=== PATIENT | male | born 1945 | race Caucasian/White ===

== ENCOUNTER 2016-06-13 11:44 | Observation (INO) | payer MEDICARE, OTHER ==
[2016-06-13] MEDS ORDERED: NS 0.9% 1000 ML* 2,000 ML IV ONE (12:37)
--- NOTE | 2016-06-13 13:50 | RAD ---
HISTORY: Dizziness, trauma, trabeculation COMPARISONS: July 01, 2014 TECHNIQUE: Multiple contiguous axial CT scans were obtained of the head without intravenous contrast. FINDINGS: HEMORRHAGE/INFARCT: There is no hemorrhage or acute infarct. MASSES/SHIFT: There is no mass or shift. EXTRA-AXIAL SPACES: There are no extra-axial fluid collections. SULCI AND VENTRICLES: The sulci and ventricles are normal in size and position for the patient's stated age. CEREBRUM: There are chronic lacunar infarcts of the basal ganglia bilaterally BRAINSTEM: There are no focal parenchymal abnormalities. CEREBELLUM: There are no focal parenchymal abnormalities. VESSELS: The vessels are grossly normal. PARANASAL SINUSES: The paranasal sinuses are clear. ORBITS: The orbits are unremarkable. BONES AND SOFT TISSUE: No bone or soft tissue abnormalities are noted. OTHER: None IMPRESSION: NO ACUTE INTRACRANIAL PATHOLOGY.
--- NOTE | 2016-06-13 13:50 | RAD ---
INDICATION: Dizziness, fever; question pneumonia. Fall. COMPARISON: June 11, 2016 CT abdomen. July 01, 2014 CT chest. TECHNIQUE: Dual energy PA and routine lateral views of the chest were obtained. REPORT: Elevated lung volumes. Negative for pulmonary infiltrate, focal pulmonary lesion, pleural effusion, pneumothorax. Minimal bilateral apical pleural-parenchymal scarring. Unchanged mild cardiomegaly. it applications developer noted. Unremarkable central pulmonary vasculature and mediastinal contours. No thoracic fractures evident. IMPRESSION: Cardiomegaly and stigmata of probable chronic obstructive pulmonary disease. No evidence for pneumonia or other acute intrathoracic disease.
--- NOTE | 2016-06-13 14:00 | RAD ---
Indication: Injury to the LEFT ankle and foot; fall. Comparison: None. Technique: AP, mortise, and lateral views LEFT ankle. AP, lateral, and oblique views LEFT foot. Report: Bone density appears decreased throughout. Negative for fracture or articular malalignment at the ankle or foot. 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 Unremarkable soft tissue contours. IMPRESSION: Negative for fracture at the LEFT ankle or foot.
[2016-06-13 14:19] LABS: Hematocrit 42 % (42-52); Hemoglobin 14.1 g/dl (14.0-18.0); Mean Corpuscular HGB Conc 34 g/dl (31-36); Mean Corpuscular Hemoglobin 31 pg (27-31); Mean Corpuscular Volume 93 fL (80-94); Mean Platelet Volume 7 um3 (7.4-10.4); Red Blood Count 4.51 10^6/ul (4.0-5.4); Red Cell Distribution Width 15 % (10.5-15); White Blood Count 6.6 10^3/ul (3.5-10.8)
[2016-06-13 14:36] LABS: Albumin 4.3 g/dL (3.2-5.2); BUN/Creatinine Ratio 13.4 (8-20); Calcium 9.3 mg/dL (8.6-10.3); EGFR African American 118.8 (>60); EGFR Non-African American 92.4 (>60); Globulin 2.5 g/dL (2-4); Magnesium 2.1 mg/dL (1.9-2.7); Potassium 4.3 mmol/L (3.5-5.0); Total Bilirubin 0.6 mg/dL (0.2-1.0); Total Protein 6.8 g/dL (6.4-8.9)
[2016-06-13 14:37] LABS: Troponin I 0.01 ng/mL (<0.04)
--- NOTE | 2016-06-13 14:51 | PN ---
Progress Note - Progress Note Note: irrigated wound with normal saline with 20CC's. licoaine 1% without epi used for anesthesia Draped in sterile fashion 4 sutures placed - monofilament prolene wrapped with compression wrap over gauze patient tolerated well minimal blood loss, but patient on coumadin neurovascular exam WNL pre-procedure and post-procedure Dr. Esqueda made aware of procedure and results. Patient in good condition and stable.
[2016-06-13 15:03] LABS: TSH (Thyroid Stimulating Horm) 1.52 mcIU/mL (0.34-5.60)
[2016-06-13 16:43] LABS: Urine Bilirubin Negative (Negative); Urine Glucose Negative (Negative); Urine Nitrite Negative (Negative)
--- NOTE | 2016-06-13 16:47 | ED ---
Jorge Staley Billy, scribed for Mickey Esqueda MD on 06/13/16 at 1346 . Dizziness - HPI Summary HPI Summary: Patient is a 70 year-old male coming to [facility] with his for evaluation of dizziness today. He was in the shower when he had an episode of lightheadedness and fell. Denies LOC, although he sustained a small laceration over the second left toe, which his dressed at home. Patient denies any head injury/trauma due to today's fall in the shower. He denies weakness in the extremities or slurred speech. Later this morning, he and his went to his PCP for a scheduled visit and it was found that his INR was 2.2. Last week, his INR was measured at 4.0 and his medications were adjusted. Patient has a history of CVA which his states left him with chronic lower extremity weakness and short- term memory loss. Patient takes a baby ASA daily as well as Coumadin. He was also recently diagnosed with UTI by Dr. Duke. - History Of Current Complaint Chief Complaint: EDDizziness Stated Complaint: DIZZY/FALL-TOE INJURY Time Seen by Provider: 06/13/16 12:37 Hx Obtained From: Patient Onset/Duration: Gradually Timing: Constant Severity Initially: Moderate Severity Currently: Moderate Character: Lightheaded Aggravating Factor(s): Nothing Alleviating Factor(s): Other - toe was dressed at home Associated Signs And Symptoms: Negative: Nausea, Vomiting, Inability to Walk, Slurred Speech - Allergies/Home Medications Allergies/Adverse Reactions: Allergies Allergy/AdvReac Type Severity Reaction Status Date / Time No Known Allergies Allergy Verified 03/27/15 14:44 Home Medications: Home Medications Aspirin Low Dose CHEW TAB* [Aspirin Low Dose TAB*] 81 mg PO DAILY 06/13/16 [ History Confirmed 06/13/16] Atorvastatin* [Lipitor*] 80 mg PO DAILY 06/13/16 [History Confirmed 06/13/16] PARoxetine HCL TAB* [Paxil TAB*] 10 mg PO DAILY 06/13/16 [History Confirmed ] Warfarin TAB(*) [Coumadin TAB(*)] 7.5 mg PO DAILY 06/13/16 [History Confirmed ] metFORMIN* [Glucophage 500 MG TAB *] 1,000 mg PO QAM 06/13/16 [History Confirmed 06/13/16] metFORMIN* [Glucophage 500 MG TAB *] 500 mg PO QPM 06/13/16 [History Confirmed 06/13/16] PMH/Surg Hx/FS Hx/Imm Hx Endocrine/Hematology History: Reports: Hx Diabetes - TYPE II- ORAL MEDICATION FOR Cardiovascular History: Reports: Hx Hypercholesterolemia, Hx Hypertension - WELL CONTROLLED WITH MEDICATION, Hx Myocardial Infarction - "silent MS", Hx Peripheral Vascular Disease - STENTS INSERTED INTO BILATERAL LEGS Denies: Hx Pacemaker/ICD, Hx Valvular Heart Disease Respiratory History: Denies: Hx Asthma, Hx Sleep Apnea GI History: Reports: Hx Gastroesophageal Reflux Disease - ON MEDICATION FOR Denies: Hx Ulcer History: Denies: Hx Dialysis, Hx Renal Disease, Other Problems/Disorders Musculoskeletal History: Denies: Hx Tendonitis Sensory History: Reports: Hx Contacts or Glasses, Hx Hearing Problem Denies: Hx Hearing Aid Opthamlomology History: Reports: Hx Contacts or Glasses Neurological History: Reports: Hx CVA Denies: Other Neuro Impairments/Disorders Psychiatric History: Denies: Hx Panic Disorder - Cancer History Cancer Type, 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 2000- FEMORAL STENT. FEB 2014- HERNIA REPAIR. BLADDER SX. SKIN CA REMOVAL. CARDIAC CATH Hx Anesthesia Reactions: No Infectious Disease History: No Infectious Disease History: Denies: Traveled Outside the [place] in Last 30 Days - Family History Family History: Positive for mother who at the age of 72 of intracerebral hemorrhage. Grandfather had brain aneurysm at the age of 52. Father had history of heart disease and secondary to it at the age of 73. - Social History Alcohol Use: None Alcohol Amount: no alcohol since last CVA Substance Use Type: Reports: None Smoking Status (MU): Former Smoker Amount Used/How Often: 1 PPD X 40 YEARS + Review of Systems Negative: Fever Negative: Vomiting, Nausea Positive: Other - lac toe Neurological: Other - dizziness Positive: Weakness - chronic lower extremity weakness s/p previous CVA. Negative: Syncope All Other Systems Reviewed And Are Negative: Yes Physical Exam - Summary Physical Exam Summary: The patient is well-nourished in no acute distress and in no acute pain. The skin is warm and dry and skin color reflects adequate perfusion. There is a flat, C-shaped laceration at the base of the second left toe, going towards the PIP joint without traversing it. HEENT: The head is normocephalic and atraumatic. The pupils are equal and reactive. EOMI. The conjunctivae are clear and without drainage. Nares are patent and without drainage. Mouth reveals moist mucous membranes and the throat is without erythema and exudate. The external ears are intact. The ear canals are patent and without drainage. The tympanic membranes are intact. Neck is supple with full range of motion and non-tender. There are no carotid bruits. There is no neck vein distension. Respiratory: Chest is non-tender. Lungs are clear to auscultation and breath sounds are symmetrical and equal. Cardiovascular: Heart is irregularly irregular. There is no murmur or rub auscultated. There is no peripheral edema and pulses are symmetrical and equal. Abdomen: The abdomen is soft and non-tender. There are normal bowel sounds heard in all four quadrants and there is no organomegaly palpated. Musculoskeletal: There is no back pain noted. There is tenderness over the dorsum of the foot and the 2nd left toe. He is also tender over the medial and lateral malleolus. There is good capillary refill. There is no peripheral edema or calf tenderness elicited. Neurological: Patient is alert and oriented to person, place and time. The patient has symmetrical motor strength in all four extremities. Cranial nerves are grossly intact. Deep tendon reflexes are symmetrical and equal in all four extremities. See NIHSS for further findings (score = 0). Psychiatric: The patient's speech and affect are appropriate, although he started to cry at inappropriate times. Triage Information Reviewed: Yes Vital Signs On Initial Exam: Initial Vitals Temp Pulse Resp BP Pulse Ox 98.9 F 124 16 154/61 97 06/13/16 11:50 06/13/16 11:50 06/13/16 11:50 06/13/16 11:50 06/13/16 11:50 Vital Signs Reviewed: Yes Diagnostics - Vital Signs Vital Signs Temp Pulse Resp BP Pulse Ox 06/13/16 12:01 39 15 91 06/13/16 12:00 98.4 F 80 16 134/61 96 06/13/16 11:50 98.9 F 124 16 154/61 97 - Laboratory Lab Results: Lab Results 06/13/16 06/13/16 06/13/16 Range/Units 14:00 14:00 14:00 WBC 6.6 (3.5-10.8) 10^3/ul RBC 4.51 (4.0-5.4) 10^6/ul Hgb 14.1 (14.0-18.0) g/dl Hct 42 (42-52) % MCV 93 (80-94) fL MCH 31 (27-31) pg MCHC 34 (31-36) g/dl RDW 15 (10.5-15) % Plt Count 160 (150-450) 10^3/ul MPV 7 L (7.4-10.4) um3 Neut % (Auto) 73.5 (38-83) % Lymph % (Auto) 14.3 L (25-47) % Phillips % (Auto) 9.8 H (1-9) % Eos % (Auto) 1.7 (0-6) % Baso % (Auto) 0.7 (0-2) % Absolute Neuts (auto) 4.9 (1.5-7.7) 10^3/ul Absolute Lymphs (auto) 0.9 L (1.0-4.8) 10^3/ul Absolute Monos (auto) 0.6 (0-0.8) 10^3/ul Absolute Eos (auto) 0.1 (0-0.6) 10^3/ul Absolute Basos (auto) 0 (0-0.2) 10^3/ul Absolute Nucleated RBC 0.01 10^3/ul Nucleated RBC % 0.1 INR (Anticoag Therapy) (0.89-1.11) Sodium 133 (133-145) mmol/L Potassium 4.3 (3.5-5.0) mmol/L Chloride 99 L (101-111) mmol/L Carbon Dioxide 27 (22-32) mmol/L Anion Gap 7 (2-11) mmol/L BUN 11 (6-24) mg/dL Creatinine 0.82 (0.67-1.17) mg/dL Est GFR ( Amer) 118.8 (>60) Est GFR (Non-Af Amer) 92.4 (>60) BUN/Creatinine Ratio 13.4 (8-20) Glucose 130 H (70-100) mg/dL Lactic Acid 1.9 (0.5-2.0) mmol/L Calcium 9.3 (8.6-10.3) mg/dL Magnesium 2.1 (1.9-2.7) mg/dL Total Bilirubin 0.60 (0.2-1.0) mg/dL AST 23 (13-39) U/L ALT 31 (7-52) U/L Alkaline Phosphatase 69 (34-104) U/L Troponin I 0.01 (<0.04) ng/mL Total Protein 6.8 (6.4-8.9) g/dL Albumin 4.3 (3.2-5.2) g/dL Globulin 2.5 (2-4) g/dL Albumin/Globulin Ratio 1.7 (1-3) TSH 1.52 (0.34-5.60) mcIU/mL Urine Color Urine Appearance Urine pH (5-9) Ur Specific [place] (1.010-1.030) Urine Protein (Negative) Urine Ketones (Negative) Urine Blood (Negative) Urine Nitrate (Negative) Urine Bilirubin (Negative) Urine Urobilinogen (Negative) Ur Leukocyte Esterase (Negative) Urine Glucose (Negative) Urine Ascorbic Acid (Negative) 06/13/16 06/13/16 Range/Units 14:00 16:33 WBC (3.5-10.8) 10^3/ul RBC (4.0-5.4) 10^6/ul Hgb (14.0-18.0) g/dl Hct (42-52) % MCV (80-94) fL MCH (27-31) pg MCHC (31-36) g/dl RDW (10.5-15) % Plt Count (150-450) 10^3/ul MPV (7.4-10.4) um3 Neut % (Auto) (38-83) % Lymph % (Auto) (25-47) % Phillips % (Auto) (1-9) % Eos % (Auto) (0-6) % Baso % (Auto) (0-2) % Absolute Neuts (auto) (1.5-7.7) 10^3/ul Absolute Lymphs (auto) (1.0-4.8) 10^3/ul Absolute Monos (auto) (0-0.8) 10^3/ul Absolute Eos (auto) (0-0.6) 10^3/ul Absolute Basos (auto) (0-0.2) 10^3/ul Absolute Nucleated RBC 10^3/ul Nucleated RBC % INR (Anticoag Therapy) 2.18 H (0.89-1.11) Sodium (133-145) mmol/L Potassium (3.5-5.0) mmol/L Chloride (101-111) mmol/L Carbon Dioxide (22-32) mmol/L Anion Gap (2-11) mmol/L BUN (6-24) mg/dL Creatinine (0.67-1.17) mg/dL Est GFR ( Amer) (>60) Est GFR (Non-Af Amer) (>60) BUN/Creatinine Ratio (8-20) Glucose (70-100) mg/dL Lactic Acid (0.5-2.0) mmol/L Calcium (8.6-10.3) mg/dL Magnesium (1.9-2.7) mg/dL Total Bilirubin (0.2-1.0) mg/dL AST (13-39) U/L ALT (7-52) U/L Alkaline Phosphatase (34-104) U/L Troponin I (<0.04) ng/mL Total Protein (6.4-8.9) g/dL Albumin (3.2-5.2) g/dL Globulin (2-4) g/dL Albumin/Globulin Ratio (1-3) TSH (0.34-5.60) mcIU/mL Urine Color Yellow Urine Appearance Clear Urine pH 7.0 (5-9) Ur Specific [place] 1.005 L (1.010-1.030) Urine Protein Negative (Negative) Urine Ketones Negative (Negative) Urine Blood Negative (Negative) Urine Nitrate Negative (Negative) Urine Bilirubin Negative (Negative) Urine Urobilinogen Negative (Negative) Ur Leukocyte Esterase Negative (Negative) Urine Glucose Negative (Negative) Urine Ascorbic Acid * H (Negative) Result Diagrams: 06/13/16 14:00 06/13/16 14:00 Lab Statement: Any lab studies that have been ordered have been reviewed, and results considered in the medical decision making process. - Radiology CXR Xray Interpretation: No Acute Changes Radiology Interpretation Completed By: Radiologist - Cardiomegaly and stigmata of probable chronic obstructive pulmonary disease. No evidence for pneumonia or other acute intrathoracic disease. Left Foot Xray Interpretation: No Acute Changes Radiology Interpretation Completed By: Radiologist Left Ankle Xray Interpretation: No Acute Changes Radiology Interpretation Completed By: Radiologist - CT brain CT Interpretation: No Acute Changes CT Interpretation Completed By: Radiologist - EKG 1206 EKG Interpretation: atrial flutter 94 bpm, controlled ventricular rate, non- specific ST changes National Institutes Of Health - NIH Scale Level of Consciousness: Alert/Keenly Responsive Ask Patient the Month and His/Her Age: Both Correct Ask Pt to Open/Close Eyes and Hack Driver/Release Non-Paretic Hand: Both Correctly Best Gaze (Only Horizontal Eye Movement): Normal Visual Field Testing: No Visual Loss Facial Paresis-Pt to Smile & Close Eyes or Grimace Symmetry: Normal/Symmetrical Motor Function - Right Arm: No Drift-Holds 10 Seconds Motor Function - Left Arm: No Drift-Holds 10 Seconds Motor Function - Right Leg: No Drift-Holds 10 Seconds Motor Function - Left Leg: No Drift-Holds 10 Seconds Limb Ataxia-Must be out of Proportion to Weakness Present: Absent Sensory (Use Pinprick to Test Arms/Legs/Trunk/Face): Normal Best Language (Describe Picture, Name Items): No Aphasia Dysarthria (Read Several Words): Normal Extinction and Inattention: No Abnormality Total Score: 0 Re-Evaluation - Re-Evaluation First Eval Re-Evaluation Time: 14:15 Change: Improved Dizzy Course/Dx - Course Assessment/Plan: 70 year-old male coming to [facility] after two episodes of dizziness today. CT of the brain, CXR, foot x-ray, and ankle x-ray show no acute pathology on imaging. In the ED course, patient was hydrated with IV fluids. The laceration on the toe was sutured and repaired by JUSTIN Palmer ( see her note for further details). Patient care was discussed with Dr. Lawson who accepted the patient for admission. - Diagnoses Differential Diagnosis/HQI/PQRI: Benign Paroxysmal Positional Vertigo, Coronary Artery Disease, CVA, Hypovolemia, Metabolic Abnormality, Vasovagal Reaction, Other - uti, cardiac dysrhythmia Provider Diagnoses: New onset atrial flutter, Weakness generalized, Anticoagulant long-term use - Provider Notifications Discussed Care Of Patient with: Dr. Lawson (hospitalist) @ 1520: accepted admission. Discharge - Discharge Plan Condition: Stable Disposition: ADMITTED TO [facility] Referrals: Brandon Sepulveda MD [Primary Care Provider] - The documentation as recorded by the Jorge gillette Billy accurately reflects the service I personally performed and the decisions made by me, Mickey Esqueda MD.
[2016-06-13] MEDS ORDERED: Acetaminophen TAB* 325 MG PO PRN (16:54)
[2016-06-13] MEDS ORDERED: metFORMIN* 500 MG TAB PO SCH (17:00)
[2016-06-13] MEDS ORDERED: NS 0.9% 1000 ML* 1,000 ML IV SCH (17:00)
[2016-06-13] MEDS ORDERED: Dextrose 50% Syringe 50 ML* 25 GM/50 ML SYRINGE IV PUSH PRN (17:24)
[2016-06-13] MEDS: Insulin LISPRO* 1 UNITS UNIT SUBCUT SCH (17:55)
[2016-06-13] MEDS ORDERED: Warfarin TAB(*) 10 MG PO ONE (18:00)
[2016-06-13] MEDS: Metoprolol Tartrate TAB* 25 MG PO SCH (20:41)
--- NOTE | 2016-06-13 22:28 | HP ---
CC: Dr. Cuba; Dr. Blanco; Dr. Sepulveda HISTORY AND PHYSICAL: DATE OF ADMISSION: 06/13/16 PRIMARY CARE PROVIDER: Dr. Sepulveda. INSTRUMENT REPAIRER STEAM PLANT: Dr. Cuba. NEUROLOGIST: Dr. Blanco. CHIEF COMPLAINT: Laceration of a toe, status post fall, and dizziness. HISTORY OF PRESENT ILLNESS: Mr. 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 Cuba on EKG during his visit in August of 2015 who presented today complaining of dizziness. The patient stated that when he was in the shower, he got dizzy, slipped, was trying to hold on to the shower curtain, subsequently fell out of the bath tub and lacerated his toe hitting it on the faucet. He denies losing consciousness. Please note that the patient is a rather constrained historian and a poor historian due to his vascular dementia. The patient and the patient's felt that it was not that unusual. The patient does get dizzy sometime, but he had another episode of dizziness when walking over to Dr. Sepulveda's office several hours later and at that point, they came over to the ED for evaluation. Here, the laceration of the second left toe was sutured. The patient was noted in atrial flutter. Originally, the ED physician thought that it was new but from review of Dr. Cuba's notes, the patient had atrial fibrillation in the past. Nevertheless, the patient's was concerned about the episodes of dizziness and the patient is going to be placed on overnight observation. Of note, his heart rate went up from 90 to 113 from the lying position to standing up that is diagnostic for orthostatic hypotension. PAST MEDICAL HISTORY: 1. History of antiphospholipid antibody syndrome with embolic strokes in the past due to it. The patient had an episode of vision deficit transient when his INR was a little bit over 2 and at that point, aspirin was added and the patient was recommended to keep his INR levels above 2.5. 2. Recent history of UTI treated by Dr. Duke. During that time, the patient' s INR increased, his Coumadin was held, and subsequently his INR is decreased. The patient was just placed back on his dose of 7.5 mg of Coumadin daily, which is his usual dose, several days ago. 3. Hypertension. 4. Multiinfarct dementia. 5. 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 6. History of gastroesophageal reflux disease. 7. Peripheral vascular disease and evaluated by Dr. Gaxiola. 8. Dyslipidemia. 9. Diabetes type 2. 10. History of tobacco use in the past. 11. H/o atrial fibrillation MEDICATIONS: Include: 1. Metformin 1000 mg in a.m. and 500 mg q.p.m. 2. Amlodipine 10 mg daily. 3. Coumadin 7.5 mg daily. 4. Paroxetine 10 mg daily. 5. Atorvastatin 80 mg daily. 6. Aspirin 81 mg daily. ALLERGIES: No known drug allergies. FAMILY HISTORY: Positive for mother, who at the age of 72 secondary to intracerebral hemorrhage. Grandfather had a brain aneurysm discovered at the age of 52. Father had a history of heart disease and secondary to it at the age of 73. SOCIAL HISTORY: The patient has a history of smoking 10 cigarettes a day. He drinks an occasional beer a day. He denies any drug use. His surrogate is his . 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 REVIEW OF SYSTEMS: Please note that the patient is a poor historian. He ambulates with a cane and occasionally in the past, he would be dizzy when he would close his eyes. He has history of urinary incontinence and wear Depends. He has poor short-term memory as per his . All the remaining 14 systems were reviewed with the patient and the patient's and were otherwise negative. PHYSICAL EXAMINATION GENERAL: The patient is a very pleasant 70-year-old male, who is in no acute distress. Alert, awake, and oriented x3. Poor recall and poor short-term memory. VITAL SIGNS: Blood pressure of 129/68, heart rate of 92 and regular, respiratory rate 15, oxygen saturation 97% on room air, temperature of 98.4. HEENT: Head: Atraumatic, normocephalic. Eyes: Pupils are equal, reactive to light and accommodation. Oropharynx clear. Mucosa moist. NECK: Supple. No JVD. No bruits bilaterally. RESPIRATORY: Clear to auscultation bilaterally. CARDIOVASCULAR: Irregularly irregular rhythm. No murmur. ABDOMEN: Soft, nontender. Bowel sounds present in all 4 quadrants. EXTREMITIES: There is no edema. Pulses are +2 bilaterally. No clubbing or cyanosis. An elevation of the skin on left second toe is sutured. There is a laceration of approximately 2 cm. Sutures applied with no evidence of wound dehiscence. NEUROLOGIC: Speech clear. The patient appears very emotional occasionally throughout his evaluation and that is a known phenomenon in this patient. Cranial nerves II through XII grossly intact. Motor strength is 5/5 bilaterally. Finger- to-nose is not dysmetric. [id number]-pr-[id number] is not dysmetric bilaterally. LABORATORY DATA: Sodium of 133, potassium 4.3, chloride 99, CO2 27, BUN 11, creatinine 0.82. Liver functions were unremarkable. Lactic acid 1.9. White blood cell count of 6.6, hemoglobin of 14.1, hematocrit of 42, MCV of 93, and platelets of 160. The patient's ankle and foot x-ray failed to diagnose any fractures. His chest x- ray: Impression: "Cardiomegaly with stigmata of probable chronic obstructive pulmonary disease. No evidence of pneumonia or other acute intrathoracic disease." Corey CT: Impression: "No acute intracranial pathology." The patient's INR was noted to be 2.18. The patient's EKG showed atrial flutter with a heart rate of 87 beats per minute. Normal axis. Comparable with prior EKGs. The patient has ST depression in the lateral leads. Once again comparing with prior EKG from 2015 , there are no changes. ASSESSMENT AND PLAN: A 70-year-old male status post fall who presents now with occasional dizziness. At this point, the patient's orthostatic vital signs although they did not have change in systolic pressures, they were noted to have change in heart rate conclusive of orthostatic hypotension. At this point , the patient is going to be placed on overnight observation and placed on gentle intravenous hydration overnight. I will ask Physical Therapy to see the patient in the morning. Most likely, they will recommend a walker. In regards to the patient's atrial fibrillation/flutter, it appears not to be a new occurrence, although the patient's heart rate is in the low 100s at this point. I will replace the patient's Norvasc with low dose of beta-dao and observe on telemetry monitored bed. In regards to the patient's diabetes, his medications are going to be continued as previously taken. For DVT prophylaxis, the patient is going to be continued on his Coumadin; but due to his INR being below 2.5, his Coumadin dose is going to be increased to 10 mg daily. We will also check INRs daily. In regards to the patient's history of stroke, at this point there is no evidence of focal weakness. The patient currently does not complain of any dizziness and there is no neurological abnormality to have another neurologic event into consideration at this point. I do believe that the dizziness is probably a combination due to atrial flutter and mild dehydration. His aspirin and his Coumadin is going to be continued for his history of antiphospholipid antibody syndrome. The patient's code status is full. For DVT prophylaxis as above, the patient is therapeutic with Coumadin as mentioned above. TIME SPENT: Please note that approximately 65 minutes were spent on the admission of this patient; more than half of that time was spent [id number] with the patient during the interview and physical exam. [id number]/[facility] #: [id number] MELISSA
[2016-06-14 06:05] LABS: Hematocrit 38 % (42-52); Hemoglobin 13.1 g/dl (14.0-18.0); Mean Corpuscular HGB Conc 34 g/dl (31-36); Mean Corpuscular Hemoglobin 32 pg (27-31); Mean Corpuscular Volume 94 fL (80-94); Mean Platelet Volume 7 um3 (7.4-10.4); Red Blood Count 4.09 10^6/ul (4.0-5.4); Red Cell Distribution Width 15 % (10.5-15); White Blood Count 6.7 10^3/ul (3.5-10.8)
[2016-06-14 06:19] LABS: BUN/Creatinine Ratio 10.1 (8-20); Calcium 8.9 mg/dL (8.6-10.3); EGFR African American 108.1 (>60); Potassium 4.5 mmol/L (3.5-5.0)
[2016-06-14] MEDS: Insulin LISPRO* 1 UNITS UNIT SUBCUT SCH (08:55)
[2016-06-14] MEDS: Metoprolol Tartrate TAB* 25 MG PO SCH (08:57)
[2016-06-14] MEDS ORDERED: PARoxetine HCL TAB* 10 MG PO SCH (09:00)
[2016-06-14] MEDS ORDERED: Atorvastatin* 80 MG TAB PO SCH (09:00)
[2016-06-14] MEDS ORDERED: metFORMIN* 1,000 MG TAB PO SCH (09:00)
[2016-06-14] MEDS ORDERED: Aspirin Low Dose CHEW TAB* 81 MG PO SCH (09:00)
[2016-06-14 11:44] VITALS: BP 108/60
[2016-06-14] MEDS ORDERED: Warfarin TAB(*) 10 MG PO SCH (17:00)
--- NOTE | 2016-06-15 03:23 | DS ---
CC: Dr. Sepulveda; Dr. Blanco; Dr. Gaxiola; Dr. Cuba DISCHARGE SUMMARY: DATE OF ADMISSION: 06/13/16 DATE OF DISCHARGE: 06/14/16 PRIMARY CARE PROVIDER: Dr. Sepulveda. DISCHARGE DIAGNOSES: 1. Dizziness. 2. Status post fall. 3. Laceration of the left second toe as a consequence of a fall. 4. Atrial flutter with heart rate in the 90s at admission. 5. Orthostasis. SECONDARY DIAGNOSES: 1. History of antiphospholipid antibody syndrome. 2. History of episodes of atrial flutter. 3. Hypertension. 4. Multi-infarct dementia. 5. History of bladder neoplasm. 6. Gastroesophageal reflux disease. 7. Peripheral vascular disease. 8. Dyslipidemia. 9. Diabetes type 2. MEDICATIONS: Medications changes include: 1. Norvasc was discontinued. 2. Coumadin is increased to 10 mg daily instead of 7.5 mg. 3. Metoprolol tartrate 12.5 mg b.i.d. is started. The remaining medications are unchanged and include: 1. Metformin 1000 mg in a.m. and 500 mg q.p.m. 2. Atorvastatin 80 mg daily. 3. Aspirin 81 mg daily. 4. Paroxetine 10 mg daily. Next INR to be checked on 06/16/16 or 06/17/16 with the Coumadin doses to be adjusted accordingly by Dr. Sepulveda. At discharge, the patient is recommended to follow up with Dr. Sepulveda in approximately 4 to 7 days. The patient is also asked to call Dr. Cuba to schedule an appointment in 1 to 2 weeks. The patient is also followed by Dr. Gaxiola for his peripheral vascular disease. LABORATORY DATA: At discharge, white blood cell count of 6.7, hemoglobin of 13.1, hematocrit of 38, and platelets of 152. Sodium was 134, potassium of 4.5, chloride 102, carbon dioxide 27, BUN 9, creatinine 0.89. Wound care to the left second toe stitches that were applied in the emergency department. The patie nt is to cover it with dry gauze on a daily basis after application of bacitracin. The bacitracin c an be stopped in approximately 5 days. It is okay once the wound is dry in a couple of days to use a Band-Aid only instead of gauze. Okay to shower on a daily basis. Keep the wound dry for a couple of days. Stitches are to be removed in approximately 7 to 10 days by either primary care provider or person a [facility]. The patient's INR on the day of discharge was 2.18. HOSPITALIZATION COURSE: Vincent Carlson is a 70-year-old male with a history of the above-mentioned c hronic conditions who presented to the hospital after couple of episodes of dizziness. When the fir st episode of dizziness happened, the patient was in the bathtub. He fell, suffered a laceration to his toe. Later on when he was on his way to Dr. Sepulveda's office, he was stepping over a curb and h e felt an episode of dizziness also. He was not dizzy anymore when he presented to the emergency de partment, but he was noted to be in atrial flutter. The patient has history of paroxysmal atrial fl utter that was documented in Dr. Cuba's notes in the past. The patient's heart rate was in the 90s . It was noted that he had increased heart rate when standing up, positive for orthostasis. At thi s point, the patient was placed on overnight observation, placed on gentle intravenous hydration sin ce he appeared dehydrated. His Norvasc was stopped and metoprolol was started at a low dose to try to control the patient's atrial flutter more. At the time of discharge, the patient's heart rate cota d been in the 60s. He has no complaints of dizziness anymore and he ambulated to the bathroom witho ut any problems. At discharge, the patient is recommended to start using a roller walker for safety . Further recommendations as previously cited. PHYSICAL EXAMINATION AT THE TIME OF DISCHARGE: Blood pressure of 112/61, heart rate of 62 and regul ar, respiratory rate 16, oxygen saturation 97% on room air, temperature of 97.3. General: The bharati ent is a very pleasant 70-year-old male, who is in no acute distress. The patient is alert and orie nted x2. The patient is rather a poor historian and that is his baseline. HEENT: Head: Atraumati c, normocephalic. Eyes: Pupils equal and reactive to light and accommodation. Oropharynx clear. M ucosa moist. Neck: Supple, no JVD and no bruits bilaterally. Cardiovascular: Irregularly irregula r rhythm. No murmur. Respiratory: Clear to auscultation bilaterally. Abdomen: Soft, nontender. Bowel sounds present in all 4 quadrants. Extremities: There is no edema. Pulses 2+ bilaterally. No clubbing or cyanosis. On evaluation of the skin, the left second toe on the dorsal aspect, the patient has a laceration that is approximately 2 cm in length, sutured with well approximated edges. The area is covered with eschar. There was no evidence of cellulitis and no wound dehiscence. Please note that this is a short summary of the patient's hospital stay. Please refer to further [place]ical records for details. [id number]/[facility] #: [id number]
== END 2016-06-14 12:00 | disposition home or self-care (01) ==
LOC: ED 11:44 → MEDTELE 17:10
PROVIDERS: ADMIT Internal Medicine; ATTEND Internal Medicine
DX: R42 Dizziness and giddiness (principal); S91.115A Laceration without foreign body of left lesser toe(s) without damage to nail, initial encounter; W18.2XXA Fall in (into) shower or empty bathtub, initial encounter; Y93.E1 Activity, personal bathing and showering; Y92.002 Bathroom of unspecified non-institutional (private) residence as the place of occurrence of the external cause; I48.92 Unspecified atrial flutter; Z79.01 Long term (current) use of anticoagulants; I95.1 Orthostatic hypotension; D68.61 Antiphospholipid syndrome; I10 Essential (primary) hypertension; F03.90 Unspecified dementia, unspecified severity, without behavioral disturbance, psychotic disturbance, mood disturbance, and anxiety; K21.9 Gastro-esophageal reflux disease without esophagitis; I73.9 Peripheral vascular disease, unspecified; E78.5 Hyperlipidemia, unspecified; E11.9 Type 2 diabetes mellitus without complications; I49.3 Ventricular premature depolarization; Z79.84 Long term (current) use of oral hypoglycemic drugs; Z79.82 Long term (current) use of aspirin; Z87.891 Personal history of nicotine dependence
CPT/HCPCS: 12001; 36415; 70450; 71020; 80048; 80053; 81003; 83605; 83735; 84443; 84484; 85025; 85610; 93005; 96360; 99284; A9270-GY; G0378

== ENCOUNTER 2017-07-15 17:37 | Emergency (ER) | payer MEDICARE, OTHER ==
[2017-07-15] MEDS ORDERED: NS 0.9% 1000 ML* 1,000 ML IV ONE ×2 (17:59→20:54)
[2017-07-15 18:40] LABS: ABS Basophils 0.1 10^3/ul (0-0.2); ABS Eosinophils 0.4 10^3/ul (0-0.6); ABS Lymphocytes 0.9 10^3/ul (1.0-4.8); ABS Monocytes 0.7 10^3/ul (0-0.8); ABS Neutrophils 5.6 10^3/ul (1.5-7.7); ABS Nucleated RBC 0 10^3/ul; Eosinophil % 5.3 % (0-6); Hematocrit 38 % (42-52); Hemoglobin 12.9 g/dl (14.0-18.0); Lymphocyte % 11.7 % (25-47); Mean Corpuscular HGB Conc 34 g/dl (31-36); Mean Corpuscular Hemoglobin 32 pg (27-31); Mean Corpuscular Volume 92 fL (80-94); Mean Platelet Volume 6.7 um3 (7.4-10.4); Nucleated Red Blood Cells % 0; Platelet Count 243 10^3/ul (150-450); Red Blood Count 4.08 10^6/ul (4.0-5.4); Red Cell Distribution Width 15 % (10.5-15); White Blood Count 7.7 10^3/ul (3.5-10.8)
[2017-07-15 18:54] LABS: INR 2.53 (0.77-1.02)
[2017-07-15 19:00] LABS: EGFR Non-African American 88.4 (>60)
[2017-07-15] MEDS ORDERED: Iodixanol* (CONTRAST) 320 MG/ML 100 ML SDV IV ONE (19:11)
--- NOTE | 2017-07-15 19:28 | RAD ---
HISTORY: Chest and upper abdominal pain COMPARISONS: PET CT dated June 16, 2012 TECHNIQUE: Multiple transverse and longitudinal ultrasound images were obtained of the right upper quadrant of the abdomen using grayscale and color Doppler imaging. FINDINGS: The study is technically limited. LIVER: The liver is normal in shape, size, contour, and echogenicity. There are no focal parenchymal masses. There is normal hepatopedal flow of the portal vein on Doppler imaging. BILIARY TREE: There is no intrahepatic or extrahepatic biliary dilatation. The common duct measures 0.6 cm. GALLBLADDER: The gallbladder is well-visualized. There is no cholelithiasis, gallbladder wall thickening, pericholecystic fluid, or sonographic Gonzalez sign. PANCREAS: The pancreas is obscured by overlying bowel gas. RIGHT KIDNEY: There is a small focus within the midpole left kidney that corresponds to vascular calcification noted on the previous PET/CT. There is no hydronephrosis or nephrolithiasis. The right kidney measures 10.9 x 5.8 x 4.8 cm. AORTA AND IVC: The aorta and IVC are unremarkable. FLUID: There are no pleural effusions. There is no free fluid within the hepatorenal recess. OTHER FINDINGS: None. IMPRESSION: NO ACUTE SONOGRAPHIC PATHOLOGY OF THE VISUALIZED PORTION OF THE ABDOMEN.
--- NOTE | 2017-07-15 20:26 | RAD ---
HISTORY: Chest and upper abdominal pain, chest surgery COMPARISONS: PET CT dated June 16, 2014 TECHNIQUE: Multiple contiguous axial CT scans were obtained of the chest, abdomen, and pelvis after the administration of intravenous contrast. Coronal and sagittal multiplanar reformations are submitted for review.. Oral contrast was not administered. FINDINGS: CHEST NECK AND THYROID: The lower neck and thyroid are unremarkable. CHEST WALL: There is no lower cervical, axillary, or supraclavicular lymphadenopathy by size criteria. HEART AND PERICARDIUM: There is biatrial and biventricular enlargement. Coronary and valvular cardiac calcifications are noted. AORTA AND PULMONARY VASCULATURE: There is no pulmonary arterial filling defect to suggest pulmonary embolism. There is atherosclerosis of the thoracic aorta. MEDIASTINUM: There is been interval progression of a right paratracheal lymph node measuring 2.6 cm in short axis. There has been interval progression of prevascular lymph nodes measuring up to 1.1 cm in short axis. SALVADOR: There has been interval progression of right hilar lymphadenopathy, measuring up to 1.2 cm in short axis. AIRWAY AND ESOPHAGUS: The airway is unremarkable, without endobronchial filling defect. The esophagus is grossly normal. LUNG PARENCHYMA: The patient is status post right lower lobectomy. There is calcified granuloma of the right upper lobe. PLEURA: There is a moderate right-sided pleural effusion. BONES AND SOFT TISSUES: No bone or soft tissue abnormalities are noted. ABDOMEN/PELVIS: LIVER: The liver is normal in shape, size, contour, and attenuation. BILE DUCTS: There is no intrahepatic or extrahepatic biliary dilatation. GALLBLADDER: The gallbladder is normal, without pericholecystic inflammatory change. PANCREAS: The pancreas is normal, without mass or ductal dilatation. SPLEEN: Normal in size and appearance. UPPER GI TRACT: Evaluation of the gastrointestinal tract is limited by incomplete gastric distention. The upper GI tract is unremarkable. SMALL BOWEL & MESENTERY: The small bowel is normal in contour, course, and caliber. There is no obstruction or dilatation. COLON: There are multiple diverticula of the distal colon. There is no pericolonic inflammatory change. There is a tubular, vermiform, hollow viscus that is blind ending, and originates from the cecum, consistent with a normal appendix. There is no periappendiceal inflammatory change. This is best seen on coronal images 53 through 60. ADRENALS: Normal bilaterally. KIDNEYS: The kidneys are normal in shape, size, contour, and axis. There is no hydronephrosis or nephrolithiasis. BLADDER: The bladder is smooth in contour. PELVIC ORGANS: The prostate is mildly enlarged. The seminal vesicles are symmetric. AORTA: There is calcific atherosclerotic disease of the abdominal aorta and its branches, without aneurysmal dilatation IVC: Unremarkable LYMPH NODES: There is no lymphadenopathy by size criteria. ABDOMINAL WALL: There is no evidence for abdominal wall hernia. BONES AND SOFT TISSUES: There are mild diffuse degenerative changes. OTHER: None IMPRESSION: 1. NO PULMONARY ARTERIAL FILLING DEFECTS TO SUGGEST PULMONARY EMBOLISM. 2. RIGHT PLEURAL EFFUSION. 3. INTERVAL PROGRESSION OF HILAR AND MEDIASTINAL LYMPHADENOPATHY. 4. CARDIOMEGALY. 5. ATHEROSCLEROSIS. 6. DIVERTICULOSIS
--- NOTE | 2017-07-15 21:40 | ED ---
Teetee Staley Julia, scribed for López Gray MD on 07/15/17 at 1818 . Complex/Multi-Sys Presentation - HPI Summary HPI Summary: This patient is a 71 year old M BIBA to [facility] accompanied by his with a chief complaint of chest and abdominal discomfort beginning a few hours ago that is currently resolved. Pt describes symptoms as just not right. Symptoms aggravated by deep breaths. He denies CP or abdominal pain. 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 Patient denies vision changes, speech changes, headache, neck pain. denies neurological symptoms or weakness. Pt alternates 5mg and 7.5mg of Warfarin daily. PMHx of a-fib, TIAs, and lung CA. Pt had mid right lobectomy about three weeks ago. - History Of Current Complaint Hx Obtained From: Patient, Family/Correctional Cook Onset/Duration: Lasting Hours, Resolved Location: Pain At: - discomfort at chest and abdomen Character: Unable To Describe Aggravating Factor(s): deep breaths Associated Signs And Symptoms: Negative: Weakness, Chest Pain, Abdominal Pain - Allergies/Home Medications Allergies/Adverse Reactions: Allergies Allergy/AdvReac Type Severity Reaction Status Date / Time No Known Allergies Allergy Verified 08/14/16 13:30 Home Medications: Home Medications Aspirin EC TAB* [Ecotrin EC Low Dose 81 MG*] 81 mg PO DAILY 07/15/17 [History Confirmed 07/15/17] Atorvastatin* [Lipitor*] 80 mg PO DAILY 07/15/17 [History Confirmed 07/15/17] Metoprolol Tartrate TAB* [Lopressor TAB*] 25 mg PO BID 07/15/17 [History Confirmed 07/15/17] PARoxetine HCL TAB* [Paxil TAB*] 10 mg PO DAILY 07/15/17 [History Confirmed 05/03] Tamsulosin CAP* [Flomax CAP*] 0.4 mg PO DAILY 07/15/17 [History Confirmed ] Warfarin TAB(*) [Coumadin TAB(*)] 5 mg PO EVERY OTHER DAY 07/15/17 [History Confirmed 07/15/17] Warfarin TAB(*) [Coumadin TAB(*)] 7.5 mg PO EVERY OTHER DAY 07/15/17 [History Confirmed 07/15/17] amLODIPine TAB* [Norvasc 5 mg TAB*] 5 mg PO DAILY 07/15/17 [History Confirmed ] metFORMIN* [Glucophage 1000 MG TAB *] 1,500 mg PO DAILY 07/15/17 [History Confirmed 07/15/17] PMH/Surg Hx/FS Hx/Imm Hx Endocrine/Hematology History: Reports: Hx Diabetes - TYPE II- ORAL MEDICATION FOR Cardiovascular History: Reports: Hx Hypercholesterolemia, Hx Hypertension - WELL CONTROLLED WITH MEDICATION, Hx Myocardial Infarction - "silent ME", Hx Peripheral Vascular Disease - STENTS INSERTED INTO BILATERAL LEGS, Other Cardiovascular Problems/Disorders - HIGH CHOLESTEROL WELL CONTROLED WITH MEDICATION Denies: Hx Pacemaker/ICD, Hx Valvular Heart Disease Respiratory History: Denies: Hx Asthma, Hx Sleep Apnea GI History: Reports: Hx Gastroesophageal Reflux Disease - ON MEDICATION FOR Denies: Hx Ulcer History: Denies: Hx Dialysis, Hx Renal Disease, Other Problems/Disorders Musculoskeletal History: Denies: Hx Tendonitis Sensory History: Reports: Hx Contacts or Glasses, Hx Hearing Problem Denies: Hx Hearing Aid Opthamlomology History: Reports: Hx Contacts or Glasses Neurological History: Reports: Hx CVA, Hx Transient Ischemic Attacks (TIA) Denies: Other Neuro Impairments/Disorders Psychiatric History: Denies: Hx Panic Disorder - Cancer History Cancer Type, Location and Year: SKIN CA -EAR. Lung CA - Surgical History Surgery Procedure, Year, and Place: APR 25, 2014- REVEAL LINQ MONITOR- LQ11, * 1.5 T ONLY* PER PT'S EVERYTHING AUTOMATICALLY DOWNLADS EVERY NIGHT AT MIDNIGHT. 2000- FEMORAL STENT. FEB 2014- HERNIA REPAIR. BLADDER SX. SKIN CA REMOVAL. CARDIAC CATH. Right mid lobectomy June 2017 Hx Anesthesia Reactions: No Infectious Disease History: No Infectious Disease History: Denies: Traveled Outside the [place] in Last 30 Days - Family History Known Family History: Positive: Other - gallbladder issues Family History: Positive for mother who at the age of 72 of intracerebral hemorrhage. Grandfather had brain aneurysm at the age of 52. Father had history of heart disease and secondary to it at the age of 73. - Social History Lives: With Family Alcohol Use: Daily Alcohol Amount: 1 - 2 beers a day Substance Use Type: Reports: None Smoking Status (MU): Former Smoker Amount Used/How Often: 1 PPD X 40 YEARS + Review of Systems Positive: Fatigue Negative: Blurred Vision Positive: Nasal Discharge Negative: Chest Pain Negative: Abdominal Pain Negative: Myalgia Negative: Headache, Weakness, Slurred Speech All Other Systems Reviewed And Are Negative: Yes Physical Exam - Summary Physical Exam Summary: General: well-appearing, no pain distress Skin: warm, color reflects adequate perfusion, dry Head: normal Eyes: EOMI, ANITHA ENT: normal Neck: supple, nontender Respiratory: CTA, breath sounds present Cardiovascular: RRR Abdomen: soft, nontender, healing surgical wound to the R lateral chest without erythmea Bowel: present Musculoskeletal: normal, strength/ROM intact Neurological: normal, sensory/motor intact, A&O x3 Psychological: affect/mood appropriate Triage Information Reviewed: Yes Vital Signs On Initial Exam: Initial Vitals Pulse Resp Pulse Ox 89 16 95 07/15/17 17:42 07/15/17 17:42 07/15/17 17:42 Vital Signs Reviewed: Yes Diagnostics - Vital Signs Vital Signs Temp Pulse Resp BP Pulse Ox 07/15/17 17:53 98.4 F 87 16 124/84 95 07/15/17 17:43 91 22 126/84 94 07/15/17 17:42 89 16 95 - Laboratory Lab Results: Lab Results 07/15/17 07/15/17 07/15/17 Range/Units 18:21 18:21 18:21 WBC 7.7 (3.5-10.8) 10^3/ul RBC 4.08 (4.0-5.4) 10^6/ul Hgb 12.9 L (14.0-18.0) g/dl Hct 38 L (42-52) % MCV 92 (80-94) fL MCH 32 H (27-31) pg MCHC 34 (31-36) g/dl RDW 15 (10.5-15) % Plt Count 243 (150-450) 10^3/ul MPV 6.7 L (7.4-10.4) um3 Neut % (Auto) 72.9 (38-83) % Lymph % (Auto) 11.7 L (25-47) % [place] % (Auto) 9.0 H (0-7) % Eos % (Auto) 5.3 (0-6) % Baso % (Auto) 1.1 (0-2) % Absolute Neuts (auto) 5.6 (1.5-7.7) 10^3/ul Absolute Lymphs (auto) 0.9 L (1.0-4.8) 10^3/ul Absolute Monos (auto) 0.7 (0-0.8) 10^3/ul Absolute Eos (auto) 0.4 (0-0.6) 10^3/ul Absolute Basos (auto) 0.1 (0-0.2) 10^3/ul Absolute Nucleated RBC 0 10^3/ul Nucleated RBC % 0 INR (Anticoag Therapy) 2.53 H (0.77-1.02) APTT 56.6 H (26.0-36.3) seconds D-Dimer, Quantitative 572 H (Less Than 230) ng/mL Sodium 135 L (139-145) mmol/L Potassium 4.6 (3.5-5.0) mmol/L Chloride 100 L (101-111) mmol/L Carbon Dioxide 24 (22-32) mmol/L Anion Gap 11 (2-11) mmol/L BUN 13 (6-24) mg/dL Creatinine 0.85 (0.67-1.17) mg/dL Est GFR ( Amer) 113.6 (>60) Est GFR (Non-Af Amer) 88.4 (>60) BUN/Creatinine Ratio 15.3 (8-20) Glucose 130 H (70-100) mg/dL Lactic Acid (0.5-2.0) mmol/L Calcium 9.1 (8.6-10.3) mg/dL Magnesium 2.1 (1.9-2.7) mg/dL Total Bilirubin 0.60 (0.2-1.0) mg/dL AST 22 (13-39) U/L ALT 30 (7-52) U/L Alkaline Phosphatase 77 (34-104) U/L Total Creatine Kinase 62 (10-223) U/L CK-MB (CK-2) 2.7 (0.6-6.3) ng/mL Troponin I 0.00 (<0.04) ng/mL C-Reactive Protein 1.12 (< 5.00) mg/L B-Natriuretic Peptide ( - 100) pg/mL Total Protein 6.6 (6.4-8.9) g/dL Albumin 3.9 (3.2-5.2) g/dL Globulin 2.7 (2-4) g/dL Albumin/Globulin Ratio 1.4 (1-3) Lipase 13 (11.0-82.0) U/L TSH 1.70 (0.34-5.60) mcIU/mL 07/15/17 07/15/17 07/15/17 Range/Units 18:21 18:21 20:37 WBC (3.5-10.8) 10^3/ul RBC (4.0-5.4) 10^6/ul Hgb (14.0-18.0) g/dl Hct (42-52) % MCV (80-94) fL MCH (27-31) pg MCHC (31-36) g/dl RDW (10.5-15) % Plt Count (150-450) 10^3/ul MPV (7.4-10.4) um3 Neut % (Auto) (38-83) % Lymph % (Auto) (25-47) % [place] % (Auto) (0-7) % Eos % (Auto) (0-6) % Baso % (Auto) (0-2) % Absolute Neuts (auto) (1.5-7.7) 10^3/ul Absolute Lymphs (auto) (1.0-4.8) 10^3/ul Absolute Monos (auto) (0-0.8) 10^3/ul Absolute Eos (auto) (0-0.6) 10^3/ul Absolute Basos (auto) (0-0.2) 10^3/ul Absolute Nucleated RBC 10^3/ul Nucleated RBC % INR (Anticoag Therapy) (0.77-1.02) APTT (26.0-36.3) seconds D-Dimer, Quantitative (Less Than 230) ng/mL Sodium (139-145) mmol/L Potassium (3.5-5.0) mmol/L Chloride (101-111) mmol/L Carbon Dioxide (22-32) mmol/L Anion Gap (2-11) mmol/L BUN (6-24) mg/dL Creatinine (0.67-1.17) mg/dL Est GFR ( Amer) (>60) Est GFR (Non-Af Amer) (>60) BUN/Creatinine Ratio (8-20) Glucose (70-100) mg/dL Lactic Acid 1.5 (0.5-2.0) mmol/L Calcium (8.6-10.3) mg/dL Magnesium (1.9-2.7) mg/dL Total Bilirubin (0.2-1.0) mg/dL AST (13-39) U/L ALT (7-52) U/L Alkaline Phosphatase (34-104) U/L Total Creatine Kinase (10-223) U/L CK-MB (CK-2) (0.6-6.3) ng/mL Troponin I 0.00 (<0.04) ng/mL C-Reactive Protein (< 5.00) mg/L B-Natriuretic Peptide 242 H ( - 100) pg/mL Total Protein (6.4-8.9) g/dL Albumin (3.2-5.2) g/dL Globulin (2-4) g/dL Albumin/Globulin Ratio (1-3) Lipase (11.0-82.0) U/L TSH (0.34-5.60) mcIU/mL Result Diagrams: 07/15/17 18:21 07/15/17 18:21 Lab Statement: Any lab studies that have been ordered have been reviewed, and results considered in the medical decision making process. - CT Chest/A/P CT Interpretation Completed By: Radiologist - 1. NO PULMONARY ARTERIAL FILLING DEFECTS TO SUGGEST PULMONARY EMBOLISM. 2. RIGHT PLEURAL EFFUSION. 3. INTERVAL PROGRESSION OF HILAR AND MEDIASTINAL LYMPHADENOPATHY. 4. CARDIOMEGALY. 5. ATHEROSCLEROSIS. 6. DIVERTICULOSIS ED Physician has reviewed this report. - EKG 1801 Cardiac Rate: NL - at 91 BPM EKG Rhythm: Atrial Flutter EKG Interpretation: borderline ST elevation in anterior leads, ST depression in lateral leads EKG Comparison: No Significant Change - from 06/13/16 - Additional Comments Diagnostic Additional Comments: A Gallbladder US reveals, as per radiologist: NO ACUTE SONOGRAPHIC PATHOLOGY OF THE VISUALIZED PORTION OF THE ABDOMEN. ED Physician has reviewed this report. Re-Evaluation - Re-Evaluation 1 Re-Evaluation Time: 21:22 Comment: Discussed results with pt. Complex Multi-Symp Course/Dx Course Of Treatment: DISCUSSED RESULTS WITH THE PATIENT AND HIS . ASYMPTOMATIC IN THE ED. DISCUSSED ADMISSION AND 3RD TROPONIN; THE PATIENT WISHES TO GO HOME NOW AND DECLINES ADMISSION. DISCUSSED RETURNING IF WORSE OR ANY QUESTIONS OR CONCERNS. F/U PMD. - Diagnoses Provider Diagnoses: Chest pain Discharge - Sign-Out/Discharge Documenting (check all that apply): Discharge/Admit/Transfer - Discharge Plan Condition: Stable Disposition: HOME Patient Education Materials: Chest Pain (ED) Referrals: Brandon Sepulveda MD [Primary Care Provider] - Additional Instructions: FOLLOW UP WITH YOUR DOCTOR. RETURN TO THE EMERGENCY DEPARTMENT FOR ANY WORSENING OF YOUR CONDITION; CHEST PAIN, SHORTNESS OF BREATH, YOU FEEL ILL OR QUESTIONS OR CONCERNS. - Billing Disposition and Condition Condition: STABLE Disposition: HOME The documentation as recorded by the Teetee gillette Julia accurately reflects the service I personally performed and the decisions made by me, López Gray MD.
[2017-07-15 21:57] VITALS: BP 137/77
== END 2017-07-15 22:00 | disposition home or self-care (01) ==
LOC: ED 17:37
DX: R07.9 Chest pain, unspecified (principal); R53.83 Other fatigue; Z87.891 Personal history of nicotine dependence
CPT/HCPCS: 36415; 71275; 74177; 76705; 80053; 82550; 82553; 83605; 83690; 83735; 83880; 84443; 84484; 85025; 85379; 85610; 85730; 86140; 93005; 99283; Q9967

== ENCOUNTER 2018-02-25 14:20 | Emergency (ER) | payer MEDICARE, OTHER ==
[2018-02-25] MEDS ORDERED: NS 0.9% 1000 ML* 1,000 ML IV ONE (14:39)
--- NOTE | 2018-02-25 14:55 | ED ---
Altered Mental Status - HPI Summary HPI Summary: Pt is a 72 y/o male who presents to the ED c/o AMS. As per , he began to have an intermittent productive cough about 1 week ago. His daughter and granddaughter recently had viral bronchitis, so pts believes this is what he has. Pts INR was up to 4.1 for several weeks and hes working on getting it down. 4 days ago, he was very disoriented. This happened again last night. states that this has happened in the past, and was simply due to dehydration. She states that yesterday the pt was very fatigued and perhaps didnt drink enough water. He just began to have a runny nose yesterday. PMHx stroke, as per his mental status has been different since then. Pt struggles with words when he is fatigued. He denies any fever. He had this seasons flu shot. In the room the pt is oriented to date but is not sure who the president is. Pt had a right middle lobe removed due to lung CA in June 2017. - History Of Current Complaint Chief Complaint: EDAltMentalStatus Stated Complaint: COUGHING AND LOW GRADE FEVER Time Seen by Provider: 02/25/18 14:38 Hx Obtained From: Patient, Family/Barrel Leveler - Onset/Duration: Still Present Timing: Intermittent Character: Confusion Aggravating Factor(s): Unknown Alleviating Factor(s): Nothing - Allergies/Home Medications Allergies/Adverse Reactions: Allergies Allergy/AdvReac Type Severity Reaction Status Date / Time No Known Allergies Allergy Verified 08/14/16 13:30 PMH/Surg Hx/FS Hx/Imm Hx Endocrine/Hematology History: Reports: Hx Diabetes - TYPE II- ORAL MEDICATION FOR Cardiovascular History: Reports: Hx Atrial Fibrillation, Hx Hypercholesterolemia , Hx Hypertension - WELL CONTROLLED WITH MEDICATION, Hx Myocardial Infarction - "silent CA", Hx Peripheral Vascular Disease - STENTS INSERTED INTO BILATERAL LEGS, Other Cardiovascular Problems/Disorders - HIGH CHOLESTEROL WELL CONTROLED WITH MEDICATION Denies: Hx Pacemaker/ICD, Hx Valvular Heart Disease Respiratory History: Denies: Hx Asthma, Hx Sleep Apnea GI History: Reports: Hx Gastroesophageal Reflux Disease - ON MEDICATION FOR Denies: Hx Ulcer History: Denies: Hx Dialysis, Hx Renal Disease, Other Problems/Disorders Musculoskeletal History: Denies: Hx Tendonitis Sensory History: Reports: Hx Contacts or Glasses, Hx Hearing Problem Denies: Hx Hearing Aid Opthamlomology History: Reports: Hx Contacts or Glasses Neurological History: Reports: Hx CVA, Hx Transient Ischemic Attacks (TIA) Denies: Other Neuro Impairments/Disorders Psychiatric History: Denies: Hx Panic Disorder - Cancer History Cancer Type, Location and Year: SKIN CA -EAR. Lung CA - Surgical History Surgery Procedure, Year, and Place: APR 25, 2014- REVEAL LINQ MONITOR- LQ11, * 1.5 T ONLY* PER PT'S EVERYTHING AUTOMATICALLY DOWNLADS EVERY NIGHT AT MIDNIGHT. 2000- FEMORAL STENT. FEB 2014- HERNIA REPAIR. BLADDER SX. SKIN CA REMOVAL. CARDIAC CATH. Right mid lobectomy June 2017 Hx Anesthesia Reactions: No Infectious Disease History: No Infectious Disease History: Denies: Traveled Outside the [place] in Last 30 Days - Family History Known Family History: Positive: Other - gallbladder issues Family History: Positive for mother who at the age of 72 of intracerebral hemorrhage. Grandfather had brain aneurysm at the age of 52. Father had history of heart disease and secondary to it at the age of 73. - Social History Alcohol Use: Daily Alcohol Amount: 1 - 2 beers a day Hx Substance Use: No Substance Use Type: Reports: None Hx Tobacco Use: Yes Smoking Status (MU): Former Smoker Amount Used/How Often: 1 PPD X 40 YEARS + Review of Systems Positive: Fatigue. Negative: Fever Positive: Nasal Discharge Positive: Cough - productive Neurological: Other - AMS All Other Systems Reviewed And Are Negative: Yes Physical Exam - Summary Physical Exam Summary: Appearance: Well appearing, no pain distress Skin: warm, dry, reflects adequate perfusion Head/face: normal Eyes: EOMI, ANITHA ENT: mucous membranes moist Neck: supple, non-tender Respiratory: course breath sounds in the left, breath sounds present Cardiovascular: tachycardic with occasional irregular rhythm, pulses symmetrical Abdomen: non-tender, soft Bowel Sounds: present Musculoskeletal: normal, strength/ROM intact Neuro: sensory motor intact, A&Ox3, mild expressive aphasia GCS: 14 Triage Information Reviewed: Yes Vital Signs On Initial Exam: Initial Vitals Temp Pulse Resp BP Pulse Ox 97.0 F 108 20 135/72 98 02/25/18 14:22 02/25/18 14:22 02/25/18 14:22 02/25/18 14:22 02/25/18 14:22 Vital Signs Reviewed: Yes Diagnostics - Vital Signs Vital Signs Temp Pulse Resp BP Pulse Ox 02/25/18 14:22 97.0 F 108 20 135/72 98 - Laboratory Result Diagrams: 02/25/18 15:39 02/25/18 15:39 Lab Statement: Any lab studies that have been ordered have been reviewed, and results considered in the medical decision making process. - Radiology CXR Radiology Interpretation Completed By: Radiologist Summary of Radiographic Findings: SMALL RIGHT PLEURAL EFFUSION. ED physician reviewed radiology report. - CT Brain CT CT Interpretation Completed By: Radiologist Summary of CT Findings: 1. NO EVIDENCE FOR ACUTE INTRACRANIAL ABNORMALITY. 2. ATROPHY AND MULTIPLE OLD LACUNAR INFARCTS. ED physician reviewed radiology report. - EKG 14:50 Cardiac Rate: Other Rate - Atrial flutter: 100 bpm EKG Rhythm: Atrial Flutter ST Segment: Non-Specific Summary of EKG Findings: Nl axis Re-Evaluation - Re-Evaluation First Eval Re-Evaluation Time: 16:18 Change: Improved Comment: Pt feels much better. HR is 70. Altered Mental Statu Course/Dx - Course Course Of Treatment: Nurse's note reviewed. - Diagnoses Provider Diagnoses: Rapid atrial fibrillation, Fatigue Discharge - Sign-Out/Discharge Documenting (check all that apply): Patient Departure - Discharge - Discharge Plan Condition: Stable Disposition: HOME Referrals: Brandon Sepulveda MD [Primary Care Provider] - - Attestation Statements Document Initiated by Scribe: Yes Documenting Scribe: Rhonda Ya Provider For Whom Scribe is Documenting (Include Credential): Serge Brice MD Scribe Attestation: Rhonda Staley, scribed for Serge Brice MD on 02/25/18 at 1624. Status of Scribe Document: Ready
[2018-02-25] MEDS ORDERED: Diltiazem IV* 5 MG/ML 5 ML VIAL (for loading dose/IV Push) (25 MG) IV SLOW PU ONE (15:11)
[2018-02-25 15:51] LABS: ABS Basophils 0.1 10^3/ul (0-0.2); ABS Eosinophils 0.2 10^3/ul (0-0.6); ABS Lymphocytes 0.7 10^3/ul (1.0-4.8); ABS Monocytes 0.6 10^3/ul (0-0.8); ABS Neutrophils 6.3 10^3/ul (1.5-7.7); ABS Nucleated RBC 0 10^3/ul; Eosinophil % 3.1 %; Hematocrit 37 % (42-52); Hemoglobin 12.7 g/dl (14.0-18.0); Lymphocyte % 9.2 %; Mean Corpuscular HGB Conc 34 g/dl (31-36); Mean Corpuscular Hemoglobin 31 pg (27-31); Mean Corpuscular Volume 91 fL (80-94); Mean Platelet Volume 6.3 fL (7.4-10.4); Nucleated Red Blood Cells % 0; Platelet Count 252 10^3/ul (150-450); Red Blood Count 4.11 10^6/ul (4.00-5.40); Red Cell Distribution Width 15 % (10.5-15)
[2018-02-25 15:57] LABS: INR 2.77 (0.77-1.02)
[2018-02-25 16:10] LABS: EGFR Non-African American 110.2 (>60)
[2018-02-25 16:55] VITALS: BP 132/67
== END 2018-02-25 16:53 | disposition home or self-care (01) ==
LOC: ED 14:20
DX: I48.91 Unspecified atrial fibrillation (principal); R53.83 Other fatigue; G31.9 Degenerative disease of nervous system, unspecified; J90 Pleural effusion, not elsewhere classified; E11.9 Type 2 diabetes mellitus without complications; Z79.84 Long term (current) use of oral hypoglycemic drugs; I25.2 Old myocardial infarction; I10 Essential (primary) hypertension; Z95.5 Presence of coronary angioplasty implant and graft; E78.00 Pure hypercholesterolemia, unspecified; K21.9 Gastro-esophageal reflux disease without esophagitis; Z87.891 Personal history of nicotine dependence
CPT/HCPCS: 36415; 70450; 71045; 80053; 80320; 82140; 83605; 83880; 84484; 85025; 85610; 86140; 87040; 93005; 96360; 99283; G0480

== ENCOUNTER 2018-07-30 11:02 | Day surgery (SDC) | payer MEDICARE, OTHER ==
[~2018-07-30 11:02] MED LIST: Buffered Lidocaine 1% SYRIN* 1 ML/SYRINGE INTRADERM ONE; Famotidine TAB* 20 MG PO ONE; Lactated Ringers 1000 ML Bag* 1,000 ML IV SCH
[2018-07-30] MEDS ORDERED: Famotidine TAB* 20 MG ONE (11:20)
[2018-07-30] MEDS ORDERED: Succinylcholine* 20 MG/ML 10 ML VIAL ONE (13:36)
[2018-07-30] MEDS ORDERED: ROPIVACAINE 5 MG/ML 30 ML BTL (0.5%) ONE (13:36)
[2018-07-30 14:34] LABS: Body Fluid Source Pleural Fluid
[2018-07-30] MEDS ORDERED: Lidocaine 1% INJ* 10 MG/ML 30 ML SDV ONE (15:10)
[2018-07-30] MEDS ORDERED: Naloxone* 0.4 MG/ML 1 ML VIAL IV PRN (15:24)
[2018-07-30] MEDS ORDERED: fentaNYL* 50 MCG/ML 2 ML VIAL (100 MCG VIAL) IV PRN (15:24)
[2018-07-30] MEDS ORDERED: Lidocaine 2% PF * 5 ML VIAL ONE (15:29)
[2018-07-30] MEDS ORDERED: Ondansetron INJ* 2 MG/ML VIAL ONE (15:29)
[2018-07-30] MEDS ORDERED: EPHEDrine (Pressors)* 50 MG/ML VIAL ONE (15:29)
[2018-07-30] MEDS ORDERED: Phenylephrine 40 MCG/ML SYRINGE ONE (15:29)
[2018-07-30] MEDS ORDERED: Propofol* 10 MG/ML 20 ML BTL ONE (15:29)
[2018-07-30 15:39] LABS: Body Fluid Mono 16 %; Body Fluid Other Cells 2
[2018-07-30 15:53] VITALS: BP 133/69
--- NOTE | 2018-07-30 17:16 | PRO ---
THORACENTESIS REPORT: DATE OF PROCEDURE: 07/30/18 - [facility] PROCEDURE PERFORMED: Ultrasound-guided thoracentesis on the right side. PREPROCEDURAL DIAGNOSIS: Moderate right pleural effusion. INDICATION: Diagnostic and therapeutic. DESCRIPTION OF PROCEDURE: Informed consent was obtained from the patient prior to the procedure after all the risks and benefits were thoroughly explained. The patient was scheduled for thoracentesis and also for bronchoscopy today. The patient was sitting up and leaning forward during the thoracentesis procedure. Appropriate time-out was agreed on by attending staff prior to the procedure. All aseptic precautions and barrier techniques were utilized. Portable ultrasound was utilized at bedside to localize fluid on the right side with some loculations and densities. Site was marked for access. Appropriate images were acquired. The patient had a sterile drape placed. 1% lidocaine was instilled intradermally subcutaneously down into the pleural space taking precautions. A stab incision was made with a #11 scalpel blade to facilitate the passage of thoracentesis catheter. An 8-Honduran CareFusion thoracentesis catheter was subsequently inserted under manual suction taking precautions. Catheter was left in place and needle was removed. 450 mL of dark, cloudy blood -stained fluid was drained under manual suction. No further fluid was coming out. Catheter was then removed and sterile drape was applied. The patient tolerated the procedure well. The patient subsequently was subjected to general anesthesia for bronchoscopy procedure. Ultrasound pictures were obtained after the procedure was completed to demonstrate good lung sliding. No evidence of pneumothorax was noted. [id number]/CPS #: [id number] MTDD
--- NOTE | 2018-07-30 19:18 | PRO ---
BRONCHOSCOPY REPORT: DATE OF PROCEDURE: 07/30/18 - [facility] PROCEDURE PERFORMED: Bronchoscopy with endobronchial ultrasound-guided fine needle aspiration from mediastinal and hilar nodes. PREPROCEDURAL DIAGNOSIS: History of lung cancer with possible recurrence. ANESTHESIA: General anesthesia. ANESTHESIOLOGIST: Dr. Tanner. DESCRIPTION OF PROCEDURE: Informed consent was obtained from the patient and his prior to the procedure after all the risks and benefits were thoroughly explained. The patient had thoracentesis just prior to this procedure. The patient was intubated with size 8.5 endotracheal tube. A flexible bronchoscope was inserted through ET tube for airway inspection. ET tube positioning was confirmed to be 2 cm above the level of jhony. Bronchoscope was then advanced into the left bronchial tree, which was inspected. Evidence of bronchomalacia was noted. Mucosa was bleeding with minimal suction. Bronchoscope was then withdrawn and advanced to right side. The patient with patent right upper lobe bronchus. The patient with no endobronchial lesions in the right mainstem. The patient with near complete occlusion of right lower lobe bronchus. Bronchoscope could not be further advanced into the right lower lobe area. Bronchoscope was then withdrawn and EBUS bronchoscope was inserted. No significant enlargement in the left-sided nodes was noted. Station 7 was accessed from the left side with 3 passes. Rapid on-site evaluation revealed lymphatic tissue with no malignant cells. Station R4 was then accessed with 3 passes. Rapid on-site evaluation revealed lymphatic tissue with no malignant cells. Bronchoscope was then advanced and fine needle aspiration was obtained from right hilar area. Rapid on-site evaluation revealed lymphatic tissue and also with malignant cells suggestive of non-small cell lung cancer. Three more passes were made for air-dried cells and also for cell block. The patient tolerated the procedure well. Minimal bleeding was noted postprocedure, which stopped quickly. 4 cc of 1% lidocaine was instilled to stop the bleeding. No further bleeding was ascertained. Bronchoscope was then withdrawn. The patient was extubated and seen in Recovery in optimal condition. Rest of the specimen was sent to the lab for further evaluation. [id number]/CPS #: [id number] [facility] CENTERHannah
[2018-08-02 12:24] LABS: Lactate Dehydrogenase, BF 147 U/L
== END 2018-07-30 16:00 | disposition home or self-care (01) ==
LOC: OR 11:02
PROVIDERS: ATTEND Internal Medicine
DX: C34.01 Malignant neoplasm of right main bronchus (principal); E11.9 Type 2 diabetes mellitus without complications; Z79.84 Long term (current) use of oral hypoglycemic drugs; I48.92 Unspecified atrial flutter; Z85.118 Personal history of other malignant neoplasm of bronchus and lung; Z79.01 Long term (current) use of anticoagulants; I08.2 Rheumatic disorders of both aortic and tricuspid valves; Z87.891 Personal history of nicotine dependence; I25.10 Atherosclerotic heart disease of native coronary artery without angina pectoris; Z95.818 Presence of other cardiac implants and grafts
CPT/HCPCS: 36415; 76604; 81445; 82945; 83615; 83986; 84157; 87070; 87205; 88112; 88172; 88173; 88177; 88305; 88341; 88342; 88360; 89051; A9270-GY; J0330; J2405; J2704; J2795

== ENCOUNTER 2018-10-28 11:36 | Emergency (ER) | payer MEDICARE, OTHER ==
--- NOTE | 2018-10-28 12:11 | ED ---
Adult Trauma - HPI Summary HPI Summary: A 73 y/o male w hx afib, CVA, cancer on warfarin who presents to [facility] with a chief complaint of left sided back pain after a fall yesterday at 20:00. Family member states he often feels lightheaded when he stands up so she usually helps him walk but he had gotten up by himself. He says that he fell onto a "sharp stool" on his L side. He denies any SOB, hitting his head/LOC, CP or abdominal pain. He reports a 5/10 stabbing back pain in his L ribs, worse when he lays down. He has bruising to the area as well as his shoulder and L arm. He had a CVA 5 years ago. Last INR 3.3 several days ago. Reports being UTD on his tetanus shot. - History of Current Complaint Chief Complaint: EDFall Stated Complaint: BACK INJ FROM FALL PER Time Seen by Provider: 10/28/18 12:01 Hx Obtained From: Patient, Family/Veterinary Technologist Mechanism of Injury: Fall Loss of Consciousness: no loss of consciousness Onset/Duration: Started Hours Ago, Still Present Onset of Pain: Immediate, Post Accident, Prior to Arrival Onset Severity: Moderate Current Severity: Moderate Pain Intensity: 5 Pain Scale Used: 0-10 Numeric Location: Back Character: Stabbing Aggravating Factor(s): Nothing Alleviating Factor(s): Nothing Associated Signs & Symptoms: Positive: Ecchymosis. Negative: Chest Pain, Abdominal Pain, Fever, Nausea/Vomiting, Loss of Consciousness - Allergy/Home Medications Allergies/Adverse Reactions: Allergies Allergy/AdvReac Type Severity Reaction Status Date / Time No Known Allergies Allergy Verified 10/28/18 11:46 Home Medications: Home Medications PARoxetine HCL TAB* [Paxil TAB*] 5 mg PO SUTUWEFRSA 10/28/18 [History Confirmed 10/28/18] PMH/Surg Hx/FS Hx/Imm Hx Endocrine/Hematology History: Reports: Hx Diabetes - TYPE II- ORAL MEDICATION FOR Cardiovascular History: Reports: Hx Atrial Fibrillation, Hx Hypercholesterolemia , Hx Hypertension - WELL CONTROLLED WITH MEDICATION, Hx Myocardial Infarction - "silent AR", Hx Peripheral Vascular Disease - STENTS INSERTED INTO BILATERAL LEGS, Other Cardiovascular Problems/Disorders - HIGH CHOLESTEROL WELL CONTROLED WITH MEDICATION Denies: Hx Pacemaker/ICD, Hx Valvular Heart Disease Respiratory History: Denies: Hx Asthma, Hx Sleep Apnea GI History: Reports: Hx Gastroesophageal Reflux Disease - ON MEDICATION FOR Denies: Hx Ulcer, Other GI Disorders History: Reports: Hx Kidney Stones - x1, passed Denies: Hx Dialysis, Hx Renal Disease, Other Problems/Disorders Musculoskeletal History: Denies: Hx Tendonitis, Other Musculoskeletal History Sensory History: Reports: Hx Cataracts - starting, Hx Contacts or Glasses, Hx Hearing Problem Denies: Hx Hearing Aid Opthamlomology History: Reports: Hx Cataracts - starting, Hx Contacts or Glasses Neurological History: Reports: Hx CVA, Hx Transient Ischemic Attacks (TIA) Denies: Other Neuro Impairments/Disorders Psychiatric History: Denies: Hx Panic Disorder - Cancer History Cancer Type, Location and Year: SKIN CA -EAR. Lung CA - Surgical History Surgery Procedure, Year, and Place: APR 25, 2014- REVEAL LINQ MONITOR- LQ11, * 1.5 T ONLY* PER PT'S EVERYTHING AUTOMATICALLY DOWNLADS EVERY NIGHT AT MIDNIGHT. 2000- FEMORAL STENT. FEB 2014- HERNIA REPAIR. BLADDER SX. SKIN CA REMOVAL. CARDIAC CATH. Right mid lobectomy June 2017 Hx Anesthesia Reactions: No Infectious Disease History: No Infectious Disease History: Denies: Traveled Outside the [place] in Last 30 Days - Family History Known Family History: Positive: Other - gallbladder issues Family History: Positive for mother who at the age of 72 of intracerebral hemorrhage. Grandfather had brain aneurysm at the age of 52. Father had history of heart disease and secondary to it at the age of 73. - Social History Alcohol Use: Daily Alcohol Amount: 1 - 2 beers a day Hx Substance Use: No Substance Use Type: Reports: None Hx Tobacco Use: Yes Smoking Status (MU): Former Smoker Amount Used/How Often: 1 PPD X 40 YEARS + Review of Systems Negative: Fever Negative: Chest Pain Negative: Shortness Of Breath Negative: Abdominal Pain Positive: Myalgia - back pain Positive: Bruising Neurological: Negative - hitting his head during fall All Other Systems Reviewed And Are Negative: Yes Physical Exam - Summary Physical Exam Summary: Constitutional: Well-developed, Well-nourished, Alert, Cooperative Skin: ecchymosis to his left flank, his left scapula and his left forearm. HENT: Normocephalic, atraumatic. Midface stable, Dentition intact Eyes: EOM normal, PERRL Neck: Trachea is midline. No stridor; No JVD; No step off; No posterior cervical spine tenderness Cardio: irregular, tachycardic, Intact distal pulses; Radial pulses are 2+ and symmetric. Pulmonary/Chest wall: L posterior rib tenderness, Effort normal; Breath sounds normal; Equal chest rise; No flail segment; No sternal tenderness Abd: Soft, Appearance normal. No distension; No tenderness Musculoskeletal: + L shoulder/scapular tenderness, full ROM and no tenderness at hips, ankles, elbows and knees; no forearm tenderness, No joint swelling; No vertebral body tenderness; No paraspinal tenderness; No step off or deformity of the spine; Pelvis is stable Neuro: Alert, Oriented x3, GCS 15. Strength 5/5 all extremities. Psych: Mood and affect Normal Triage Information Reviewed: Yes Vital Signs On Initial Exam: Initial Vitals Temp Pulse Resp BP Pulse Ox 96.8 F 142 18 89/60 99 10/28/18 11:39 10/28/18 11:39 10/28/18 11:39 10/28/18 11:39 10/28/18 11:39 Vital Signs Reviewed: Yes Diagnostics - Vital Signs Vital Signs Temp Pulse Resp BP Pulse Ox 10/28/18 11:39 96.8 F 142 18 89/60 99 - Laboratory Result Diagrams: 10/28/18 12:43 10/28/18 12:43 Lab Statement: Any lab studies that have been ordered have been reviewed, and results considered in the medical decision making process. - Radiology CXR Radiology Interpretation Completed By: Radiologist Summary of Radiographic Findings: Right pleural effusion. Left lung field is clear. Likely right base. atelectasis. ED physician has reviewed this imaging report. shoulder x-ray Radiology Interpretation Completed By: Radiologist Summary of Radiographic Findings: No fracture is noted. Degenerative changes of the glenohumeral joint with. likely calcific tendinitis. ED physician has reviewed this imaging report. Forearm x-ray Radiology Interpretation Completed By: Radiologist Summary of Radiographic Findings: No fracture of the left forearm is noted. ED physician has reviewed this imaging report. - CT chest/abdomen/pelvis CT Interpretation Completed By: Radiologist Summary of CT Findings: 1. No traumatic injury to the chest, abdomen or pelvis there. 2. The right perihilar mass has decreased in size. 3. Unchanged moderate right pleural effusion. 4. A 5 mm nodule in the left upper lobe is unchanged. Attention on follow-up imaging. 5. The mediastinal lymph nodes are stable to slightly decreased in size. 6. Right eccentric urinary bladder wall thickening of unclear etiology. Recommend. correlation with urine cytology/ urinalysis. 7. Rectal stool impaction. ED physician has reviewed this imaging report. - EKG 12:07 Cardiac Rate: Other Rate - Atrial fibrillation at 133bpm EKG Rhythm: Atrial Fibrillation Summary of EKG Findings: EKG at 12:07 reveals atrial fibrillation at 133 bpm, ST depressions in V4, V5, V6 which are old, new T-wave inversions in V5 and V6 Re-Evaluation - Re-Evaluation First Eval Re-Evaluation Time: 15:03 Change: Unchanged Comment: Discussed results including rib fractures. The patient does not want to stay. Discussed with family member who is aware patient is high risk for pneumonia given his multiple comorbidities. Patient has an incentive spirometer at home and states he'll use it. If patient's heart rate is under control will plan for discharge with pain medicine and PCP follow-up. Second Eval Re-Evaluation Time: 16:43 Change: Improved Comment: HR is down to 95 Adult Trauma Course/Dx - Course Course Of Treatment: 73 year-old male with a history of atrial fibrillation, lung cancer, on warfarin who presents with fall. Primary survery w tachycardia in the 130s, A. fib. Secondary survey with left scapula, left flank ecchymosis , left forearm ecchymosis. No CTL midline tenderness. Will check chest x-ray, labs, CT abdomen and pelvis given fall on blood thinners - Diagnoses Provider Diagnoses: Rib fracture, Fall from ground level Discharge - Sign-Out/Discharge Documenting (check all that apply): Patient Departure - DC Patient Received Moderate/Deep Sedation with Procedure: No - Discharge Plan Condition: Stable Disposition: HOME Prescriptions: oxyCODONE/Acetamin 5/325 MG* [Percocet 5/325 TAB*] 1 tab PO Q6H PRN 3 Days #12 tab MDD 4 PRN Reason: Pain Patient Education Materials: Rib Fracture (ED) Referrals: Brandon Sepulveda MD [Primary Care Provider] - Additional Instructions: You were seen in the emergency department after a fall. Your CT scan showed broken ribs on the left side. Please use your incentive spirometer at home. You're fractures put you at an increased risk of pneumonia. Please return to the emergency department for worsening pain, trouble breathing, fevers or if you are concerned You can take Percocet for severe pain, this has Tylenol in it, therefore did not take Percocet and Tylenol the same time Please return to the emergency department for trouble breathing, chest pain, nausea, vomiting, abdominal pain, confusion, severe headaches, new weakness or numbness or if you are concerned. This means when you leave the department, you are responsible for following up on any appointments that were discussed. We think it is important that you call and schedule an appointment to see your primary care doctor. It was pleasure taking care of you today. Please- DO NOT DRIVE OR DRINK ALCOHOL WHILE TAKING MORPHINE IR, NORCO, VICODIN, LORTAB, PERCOCET, TRAMADOL, or TYLENOL #3. Only take these medications for as long as you need it to control your pain. If your pain is not severe, unless your doctor has told you not to, you can take Tylenol (acetaminophen) or Motrin (ibuprofen) over the counter instead of these medications. DO NOT take tylenol ( acetaminophen) at the same time as norco, vicodin, lortab, tylenol #3, or percocet at the same time because these medications have tylenol in it. Please follow the directions for these medications on the bottle. If you have extra pills of left over and do not need them any more for pain, please dispose of them by throwing them away in the trash- do not flush these medications. Do not save them for another time or give them to any other person. Please lock up these medications and make sure that no one else has access- especially children and teens or anyone who has issues with drug abuse. - Billing Disposition and Condition Condition: STABLE Disposition: Home - Attestation Statements Document Initiated by Scribe: Yes Documenting Scribe: Lei Ruiz Provider For Whom Mars is Documenting (Include Credential): Genie Saba MD Scribe Attestation: ILei, scribed for Genie Saba MD on 10/28/18 at 2154. Scribe Documentation Reviewed: Yes Provider Attestation: The documentation as recorded by the scribe, Lei Ruiz accurately reflects the service I personally performed and the decisions made by me, Genie Saba MD Status of Scribe Document: Viewed
[2018-10-28] MEDS ORDERED: Diltiazem TAB* 30 MG PO ONE (12:37)
[2018-10-28] MEDS ORDERED: NS 0.9% 1000 ML** 1,000 ML IV ONE (12:37)
[2018-10-28] MEDS ORDERED: oxyCODONE/Acetamin 5/325 MG* TAB PO ONE (12:49)
[2018-10-28 13:05] LABS: INR 3.34 (0.82-1.09)
[2018-10-28 13:07] LABS: ABS Lymphocytes 0.2 10^3/ul (1.0-4.8); ABS Monocytes 0.3 10^3/ul (0-0.8); ABS Neutrophils 7.8 10^3/ul (1.5-7.7); Eosinophil % 0.3 %; Hematocrit 34 % (42-52); Hemoglobin 11.6 g/dL (14.0-18.0); Lymphocyte % 2.1 %; Mean Corpuscular HGB Conc 34 g/dL (31-36); Mean Corpuscular Hemoglobin 33 pg (27-31); Mean Corpuscular Volume 96 fL (80-94); Mean Platelet Volume 7.4 fL (7.4-10.4); Platelet Count 93 10^3/uL (150-450); Red Blood Count 3.54 10^6 /uL (4.18-5.48); Red Cell Distribution Width 25 % (10-15); White Blood Count 8.4 10^3/uL (3.5-10.8)
[2018-10-28 13:18] LABS: Albumin/Globulin Ratio 1.7 (1-3); BUN/Creatinine Ratio 29.6 (8-20); Calcium 8.5 mg/dL (8.6-10.3); EGFR African American 130.9 (>60); EGFR Non-African American 108.2 (>60); Globulin 2.3 g/dL (2-4); Potassium 4.6 mmol/L (3.5-5.0); Total Bilirubin 0.6 mg/dL (0.2-1.0); Total Protein 6.3 g/dL (6.4-8.9)
[2018-10-28] MEDS ORDERED: Iodixanol* (CONTRAST) 320 MG/ML 100 ML SDV IV ONE (13:33)
--- OUTSIDE RECORDS SUMMARY | 2018-10-28 14:30 | XMS REPORT | Continuity of Care Document ---
:1945 External Reference #:[id number] Author Name Alfa Waleska Care Team Providers Name Role Phone Brandon Sepulveda MD Care Team Information Med Aide Unavailable Brandon Sepulveda MD Primary Care Physician Unavailable Payers Date Identification Numbers Payment Provider Subscriber Policy Number: [id number] Medicare Moriah Carlson PayID: [id number] [address] [place] [address] Policy Number: [id number] [facility] Moriah Carlson Group Number: [id number] [address] [address] PayID: [id number] [place] [address] Expires: 2017 Policy Number: [id number] Medicare Moriah Carlson PayID: [id number] [address] [place] [address] Policy Number: [id number] [facility] Moriah Carlson PayID: [id number] [address] [place] [address] Problems Active Problems Provider Date Ischemic stroke Lou Blanco M.D. Onset: 06/06/2014 Note: multiple; 2014 Antiphospholipid syndrome Lou Blanco M.D. Onset: 06/06/2014 Note: could not be confirmed by Dr. Larios (2016) Peripheral vascular disease Kyle Brody M.D. Onset: 07/02/2016 Vascular dementia Lou Blanco M.D. Onset: 11/14/2016 Note: MoCA: September 2014: ; October 2015: ; November 2016: ; March 2018: 02/12 Carcinoma of middle lobe, bronchus or lung Lou Blanco M.D. Onset: 2017 Note: Right Family History Date Family Member(s) Observation Comments General Heart Disease General Diabetes General Sleep Apnea Daughter General Skin Cancer Father heart disease. 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 Tobacco Use Start: Unknown End: Former Cigarette Smoker 1 55 years Pack Daily Smoking Status Reviewed: 10/13/18 Former Cigarette Smoker 1 55 years Pack Daily ETOH Use Consumes 2 beers per day Recreational Drug Use Denies Drug Use Tobacco Use Start: Unknown End: Patient is a former smoker quit ~ 2014 Unknown Exercise Type/Frequency Does not exercise Allergies, Adverse Reactions, Alerts Description No Known Drug Allergies Medications Active Medications SIG Qnty Indications Ordering Provider Date Paxil 1 by mouth every Unknown 20mg Tablets day Ipratropium [place] 1 spray each Unknown 0.06% nostril as needed Solution Rosuvastatin Calcium 1 by mouth every Brandon Sepulveda, 20mg day Tablets Diltiazem HCL ER take 1 capsule by Unknown Coated Beads mouth once daily 180mg Caps ER 24HR Tamsulosin HCL 1 by mouth every Unknown 0.4mg day Capsules Magnesium 1 by mouth every Unknown 250mg Tablets day Calcium 500 qd Unknown 500mg Vitamin B Complex 1 by mouth every Unknown 100mg day Tablets Aspirin daily Unknown 81mg Warfarin Sodium 5 mg po Mon,Thu Brandon Sepulveda, 5mg 7.5 MD Tablets ,Thu,,Sat ,Sun as directed Vitamin C 2 by mouth every Unknown 1000mg Tablets day Metformin HCL 2 tablet po Am,1 Unknown 500mg tablet po PM Tablets History Medications Clopidogrel Bisulfate 1 by mouth every day 180tabs Kyle Crowder 08/08/2016 - to be started one Mikey Brody 08/26/2016 75mg Tablets week prior to endovascular surgery with Dr. Brody Cephalexin 1 tab three times a 9tabs Billy Tavares 04/25/2014 - 500mg day for 3 days Mikey Cuba 05/07/2014 Tablets Paxil 2 tabs everyday Unknown - 10mg Tablets 03/29/2018 Atorvastatin Calcium half tab by mouth Unknown - everyday 03/07/2018 80mg Tablets Lovaza 2 by mouth twice a Unknown - 1gm Capsules day 05/14/2014 Vitamin E 1 cap po daily Unknown - 400Iu 10/12/2018 Capsules Vitamin D 1 tab po daily Unknown - 10/12/2018 Fish Oil 1 daily Unknown - Capsules 10/12/2018 Metoprolol Tartrate 1/2 by mouth twice a Unknown - day 11/13/2016 25mg Tablets Soybean Lecithin 1 cap po daily Unknown - (unsure of dose) 03/29/2018 Capsule Metoprolol Tartrate 1 tablet Am and 1/2 180tabs Unknown - tablet po PM 03/07/2018 25mg Tablets Aspirin 1 by mouth every day Unknown - 325mg Tablets 05/14/2014 DR Amato 1 by mouth every day Unknown - 10mg Tablets 05/14/2014 Zantac 1 tab by mouth every Unknown - 300mg Tablets day 08/23/2015 Plavix 1 by mouth every day Unknown - 75mg Tablets 05/14/2014 Amlodipine Besylate half tab daily 90tabs Unknown - 03/07/2018 10mg Tablets Atorvastatin Calcium 1 by mouth every day 30tabs Unknown - 06/05/2014 10mg Tablets Cilostazol 1 by mouth twice a Unknown - 100mg day 05/14/2014 Tablets Metoprolol Tartrate 1/2 tab by mouth 180tabs Unknown - twice a day 07/25/2014 25mg Tablets Ramipril 1 by mouth every day 90caps Unknown - 10mg Capsules 04/19/2014 Omeprazole 1 by mouth every day 90caps Unknown - 20mg 05/07/2014 Capsules Vital Signs Date Vital Result Comment 10/13/2018 2:46pm Height 71 inches 5'11" Weight 190.00 lb Heart Rate 79 /min BP Systolic Sitting 120 mmHg Lue reg cuff BP Diastolic Sitting 62 mmHg Lue reg cuff BP Systolic Standing 122 mmHg Lue reg cuff BP Diastolic Standing 62 mmHg Lue reg cuff Respiratory Rate 14 /min BMI (Body Mass Index) 26.5 kg/m2 Ejection Fraction 55-60% Echo 04/12/14 08/12/2018 11:10am Height 71 inches 5'11" Weight 196.00 lb Heart Rate 80 /min BP Systolic Sitting 120 mmHg Lue regular cuff BP Diastolic Sitting 70 mmHg Lue regular cuff Respiratory Rate 16 /min O2 % BldC Oximetry 97 % BMI (Body Mass Index) 27.3 kg/m2 07/28/2018 9:26am Height 71 inches 5'11" Weight 190.00 lb Heart Rate 98 /min BP Systolic Sitting 128 mmHg Lue reg cuff BP Diastolic Sitting 84 mmHg Lue reg cuff Respiratory Rate 14 /min O2 % BldC Oximetry 95 % On Ra BMI (Body Mass Index) 26.5 kg/m2 Neck Circumference in inches 17.5 03/30/2018 11:25am Height 71 inches 5'11" Weight 195.00 lb with boots Heart Rate 80 /min BP Systolic 118 mmHg lue reg cuff BP Diastolic 64 mmHg lue reg cuff BP Systolic Sitting 120 mmHg lue reg cuff BP Diastolic Sitting 68 mmHg lue reg cuff Respiratory Rate 14 /min BMI (Body Mass Index) 27.2 kg/m2 03/26/2018 10:31am Height 71 inches 5'11" Weight 188.00 lb Heart Rate 86 /min BP Systolic Sitting 124 mmHg Lue BP Diastolic Sitting 80 mmHg Lue Respiratory Rate 16 /min BMI (Body Mass Index) 26.2 kg/m2 03/08/2018 8:02am Height 71 inches 5'11" Weight 188.00 lb w/o shoes Heart Rate 98 /min BP Systolic 110 mmHg LA reg cuff BP Diastolic 65 mmHg LA reg cuff BP Systolic Sitting 105 mmHg LA reg cuff BP Diastolic Sitting 60 mmHg LA reg cuff Respiratory Rate 18 /min BMI (Body Mass Index) 26.2 kg/m2 08/26/2017 11:31am Height 71 inches 5'11" Weight 192.00 lb with shoes Heart Rate 60 /min BP Systolic Sitting 108 mmHg Lue lg cuff BP Diastolic Sitting 52 mmHg Lue lg cuff BP Systolic Standing 98 mmHg Lue lg cuff BP Diastolic Standing 50 mmHg Lue lg cuff Respiratory Rate 16 /min BMI (Body Mass Index) 26.8 kg/m2 Ejection Fraction 55-60% date 04/12/14 ECHO 08/20/2017 9:41am Height 71 inches 5'11" Weight 196.12 lb Heart Rate 68 /min BP Systolic Sitting 112 mmHg BP Diastolic Sitting 64 mmHg Respiratory Rate 16 /min BMI (Body Mass Index) 27.4 kg/m2 11/14/2016 11:05am Height 71 inches 5'11" Weight 195.00 lb Heart Rate 80 /min BP Systolic Sitting 116 mmHg BP Diastolic Sitting 74 mmHg BP Systolic Standing 104 mmHg BP Diastolic Standing 64 mmHg Respiratory Rate 16 /min BMI (Body Mass Index) 27.2 kg/m2 09/05/2016 11:24am Height 71 inches 5'11" Weight 196.00 lb with shoes Heart Rate 70 /min BP Systolic Sitting 122 mmHg Lue reg cuff BP Diastolic Sitting 60 mmHg Lue reg cuff BP Systolic Standing 114 mmHg Lue reg cuff BP Diastolic Standing 66 mmHg Lue reg cuff Respiratory Rate 17 /min BMI (Body Mass Index) 27.3 kg/m2 Ejection Fraction 55-60% date 04/12/14 ECHO 07/02/2016 1:48pm Height 71 inches 5'11" Weight 198.00 lb w/ shoes Heart Rate 82 /min BP Systolic Sitting 120 mmHg Lue, reg cuff BP Diastolic Sitting 84 mmHg Lue, reg cuff Respiratory Rate 16 /min BMI (Body Mass Index) 27.6 kg/m2 05/12/2016 11:36am Height 71 inches 5'11" Weight 197.00 lb Heart Rate 84 /min BP Systolic Sitting 128 mmHg BP Diastolic Sitting 68 mmHg Respiratory Rate 14 /min BMI (Body Mass Index) 27.5 kg/m2 11/07/2015 11:01am Height 71 inches 5'11" Weight 195.00 lb Heart Rate 904 /min BP Systolic Sitting 122 mmHg BP Diastolic Sitting 70 mmHg Respiratory Rate 17 /min BMI (Body Mass Index) 27.2 kg/m2 08/24/2015 12:33pm Height 71 inches 5'11" Weight 191.31 lb with shoes Heart Rate 86 /min BP Systolic Sitting 110 mmHg Ra lrg cuff BP Diastolic Sitting 62 mmHg Ra lrg cuff BP Systolic Standing 110 mmHg Ra lrg cuff BP Diastolic Standing 62 mmHg Ra lrg cuff Respiratory Rate 17 /min BMI (Body Mass Index) 26.7 kg/m2 Ejection Fraction 55-60% 04/12/14 05/09/2015 10:38am Height 71 inches 5'11" Weight 190.00 lb Heart Rate 116 /min BP Systolic Sitting 138 mmHg BP Diastolic Sitting 64 mmHg Respiratory Rate 16 /min BMI (Body Mass Index) 26.5 kg/m2 03/26/2015 3:46pm Height 71 inches 5'11" Weight 175.00 lb Heart Rate 56 /min BP Systolic Sitting 102 mmHg BP Diastolic Sitting 70 mmHg Respiratory Rate 14 /min BMI (Body Mass Index) 24.4 kg/m2 02/19/2015 11:04am Height 71 inches 5'11" Weight 170.00 lb BMI (Body Mass Index) 23.7 kg/m2 12/20/2014 10:11am Height 71 inches 5'11" Weight 170.00 lb Pain Level 5 BMI (Body Mass Index) 23.7 kg/m2 09/21/2014 11:40am Height 71 inches 5'11" Heart Rate 60 /min BP Systolic Sitting 136 mmHg BP Diastolic Sitting 70 mmHg Respiratory Rate 14 /min 07/26/2014 10:10am Height 71 inches 5'11" Weight 171.31 lb no shoes Heart Rate 38 /min irregular BP Systolic Sitting 124 mmHg LA, reg cuff BP Diastolic Sitting 76 mmHg LA, reg cuff BP Systolic Standing 122 mmHg LA BP Diastolic Standing 68 mmHg LA Respiratory Rate 16 /min BMI (Body Mass Index) 23.9 kg/m2 Ejection Fraction 55-60% 04/12/2014 06/06/2014 10:57am Height 71 inches 5'11" Weight 171.00 lb Heart Rate 68 /min BP Systolic Sitting 128 mmHg BP Diastolic Sitting 68 mmHg Respiratory Rate 16 /min BMI (Body Mass Index) 23.8 kg/m2 05/08/2014 9:18am Height 71 inches 5'11" Weight 176.00 lb Heart Rate 54 /min BP Systolic Sitting 138 mmHg right arm, reg cuff BP Diastolic Sitting 66 mmHg right arm, reg cuff BP Systolic Standing 134 mmHg right arm, reg cuff BP Diastolic Standing 66 mmHg right arm, reg cuff Respiratory Rate 16 /min BMI (Body Mass Index) 24.5 kg/m2 04/20/2014 10:34am Height 71 inches 5'11" Weight 173.00 lb Heart Rate 62 /min BP Systolic Sitting 130 mmHg right arm, reg cuff BP Diastolic Sitting 70 mmHg right arm, reg cuff BP Systolic Standing 118 mmHg right arm, reg cuff BP Diastolic Standing 68 mmHg right arm, reg cuff Respiratory Rate 16 /min BMI (Body Mass Index) 24.1 kg/m2 11/16/2013 11:44am Height 71 inches 5'11" Weight 171.00 lb without shoes Heart Rate 78 /min reg with ectopy BP Systolic Sitting 144 mmHg LA reg cuff BP Diastolic Sitting 60 mmHg LA reg cuff BP Systolic Standing 132 mmHg LA reg cuff BP Diastolic Standing 60 mmHg LA reg cuff Respiratory Rate 16 /min BMI (Body Mass Index) 23.8 kg/m2 Results Test Date Facility Test Result H/L Range Note Laboratory test 07/30/2018 [facility] Cytology SEE RESULT [address] [place] [address] [phone] Lung Cancer 07/30/2018 [facility] LNGPR Result See Comment 2 Targeted Gene [address] Summary Panel [place], [place] [id number] [phone] LNGPR Result See Comment 3 LNGPR Interpretation See Comment 4 LNG[facility] Additional Information See Comment 5 LNGPR Specimen Cells LNGPR Tissue Id [id number] #3 LNGPR Released By See Comment 6 Body Fluid C&S 07/30/2018 [facility] Body Fluid Cult SEE RESULT [address] [address] [phone] Lactate 07/30/2018 [facility] Lactate 147 U/L 8 Dehydrogenase,BF [address] Dehydrogenase, [place] [address] BF [phone] Fluid Source Pleural 9 Body Fluid Total 07/30/2018 [facility] Total Protein, BF 3.6 g/ dL [address] [place], [place] [id number] [phone] Fluid Source Pleural 11 Body Fluid Cell 07/30/2018 [facility] Body Fluid Pleural Fluid Count [address] [place] [address] [phone] Body Fluid Appearance Bloody Body Fluid Color Abeba Body Fluid Volume 8 mL Body Fluid WBC 2955 /mcL Normal 12 Body Fluid RBC 04442 /mcL Body Fluid Neutrophils 7 % Body Fluid Lymph 76 % Body Fluid Cottle 16 % Body Fluid Eosinophil 1 % Body Fluid Other Cells 2 Body Fluid Total Cells Counted 100 Fluid Reviewed By MD (SEE NOTE) 13 Body Fluid Glucose 07/30/2018 [facility] Glucose, BF 151 mg/dL [address] [place] [address] [phone] Fluid Source PLEURAL 15 Laboratory test 07/30/2018 [facility] Body Fluid PH 8.[address] [place] [address] [phone] Laboratory test 07/30/2018 [facility] Cytology SEE RESULT [address] [employer] [address] [phone] Laboratory test 07/30/2018 [facility] Point of Care 173 mg/dL High 70-[address] Glucose 0 [place] [address] [phone] Laboratory test 07/14/2018 [facility] Point of Care 176 mg/dL High 70-10 [address] [facility] DRIVE Glucose 0 [place] [address] [phone] Vitamin B12 And 05/04/2018 [facility] Vitamin B12 812 pg/mL Normal 180-9 [address] [place] [address] [phone] Folic Acid (Folate) > 20.00 ng/mL >3.99 Laboratory 05/04/2018 [facility] TSH (Thyroid 1.19 Normal 0.34 -5.[address] Stim Horm) mcIU/[place] [address] [phone] Inr/Protime 08/15/2016 [facility] Inr 1.67 High 0.89-1.[address] [place] [address] [phone] Basic 08/15/2016 [facility] Sodium 131 mmol/L Low 133-[address] [place] [address] [phone] Potassium 4.2 mmol/L Normal 3.5-5.0 Chloride 98 mmol/L Low 101-111 Co2 Carbon Dioxide 26 mmol/L Normal 22-32 Anion Gap 7 mmol/L Normal 2-11 Glucose 144 mg/dL High 70-100 Blood Urea Nitrogen 12 mg/dL Normal 6-24 Creatinine 0.82 mg/dL Normal 0.67-1.17 BUN/Creatinine Ratio 14.6 Normal 8-20 Calcium 9.2 mg/dL Normal 8.6-10.3 Egfr Non- 92.4 Normal >60 Egfr 118.8 Normal >60 21 CBC Auto 08/15/2016 [facility] White Blood 5.7 10^3/uL Normal 3.5-10.[address] [place] [address] [phone] Red Blood Count 4.68 10^6/uL Normal 4.0-5.4 Hemoglobin 14.7 g/dL Normal 14.0-18.0 Hematocrit 43 % Normal 42-52 Mean Corpuscular Volume 93 fL Normal 80-94 Mean Corpuscular Hemoglobin 31 pg Normal 27-31 Mean Corpuscular HGB Conc 34 g/dL Normal 31-36 Red Cell Distribution Width 15 % Normal 10.5-15 Platelet Count 140 10^3/uL Low 150-450 Mean Platelet Volume 8 um3 Normal 7.4-10.4 Abs Neutrophils 4.4 10^3/uL Normal 1.5-7.7 Abs Lymphocytes 0.5 10^3/uL Low 1.0-4.8 Abs Monocytes 0.6 10^3/uL Normal 0-0.8 Abs Eosinophils 0.2 10^3/uL Normal 0-0.6 Abs Basophils 0 10^3/uL Normal 0-0.2 Abs Nucleated RBC 0 10^3/uL Normal Granulocyte % 76.4 % Normal 38-83 Lymphocyte % 8.3 % Low 25-47 Monocyte % 11.0 % High 1-9 Eosinophil % 3.6 % Normal 0-6 Basophil % 0.7 % Normal 0-2 Nucleated Red Blood Cells % 0 Normal Arterial Blood 04/11/2014 [facility] PH Arterial 7.46 High 7.35-7.[address] [place] [address] [phone] Pco2 Arterial 37 mmHg Normal 35-45 Po2 Arterial 79 mmHg Low 80-100 O2 Saturation Arterial 98.3 % High 95-98 Base Excess Arterial 2.5 High -2.0-2.0 22 Hco3 Arterial 26.7 mmol/L Normal 19-31 1 SEE RESULT BELOW Name: MORIAH CARLSON : [address]: Kirstin Bergeron MD Acct: [id number] Unit: [id number] AGE: 72 Location: OR Re07/30/18 SEX: M Status: DEP SDC SPEC: [id number] WANDA: 07/30/18-[address]: Kirstin Bergeron MD REQ: [id number] RECD: 07/30/18 STATUS: SOUT _ ORDERED: FNA-IMG GUID BX/3, CY ADEQ-ADDL P/2, LEVEL 4/3, CYTO ADEQ-1ST P/3, IMMUN IMMUNO-ADDL/2, IMMUNO-QUANT ADDENDUM Lung Panel with Rearrangement Tumor has been performed at [place], [place]. The testing reveals: Received: 04 Aug 2018 11:52 Reported: 17 Aug 2018 14:49 Result Summary: NO ALTERATIONS IDENTIFIED Result Provided diagnosis: Lung adenocarcinoma No reportable somatic alterations were identified within the tested genes including ALK, BRAF, EGFR, ERBB2, HRAS, KRAS, MET, and NRAS (i.e. specimen is ALK, BRAF, EGFR, ERBB2, HRAS, KRAS, MET, and NRAS wild-type). No reportable fusions were identified involving the ALK, RET, ROS1, or NTRK1 genes. Interpretation See note [1] below. ASSOCIATIONS BETWEEN GENE MUTATIONS/REARRANGEMENTS AND LUNG CANCER Current data suggests that the efficacy of targeted therapies in patients with non-small cell lung cancer is limited to tumors with mutations or rearrangements in certain genes. Thus, the absence of a detectable mutation and rearrangement within this tumor suggests that targeted therapies to the listed genes may have limited therapeutic value for this patient (1-7). REFERENCES 1. Mol Diagn. 2013 Sep;15(4):415-53 (PMID 52371298) 2. Oncologist. 2016 Aug;21(6):684-91 (PMID [id number]) 3. Lancet Oncol. 2016 July;17(5):642-50 (PMID 71250922) 4. Lancet Oncol. 2016 Sep;17(7):984-93 (PMID [id number]) CONTINUED ON NEXT PAGE DEPARTMENT OF PATHOLOGY, [address] [place] [address] Harry Contreras M.D. Director CLIA # [id number] RUN DATE: 08/18/18 [facility] LAB LIVE PAGE 2 Patient: MORIAH CARLSON [id number] (Continued) ADDENDUM (Continued) 5. Cancer Discov. 2015 Oct;5(8):842-9 (PMID 02307785) 6. Cancer Discov. 2014;5(8):850-9 (PMID 69306721) 7. Valerie. Med. 2013 Jan;19(11):1469-42 (PMID 16447566) ADDITIONAL INFORMATION Microscopic examination was performed by a pathologist to identify areas of tumor for enrichment by macrodissection. Next generation sequencing was performed to test for the presence of a mutation within targeted regions of the following genes: EGFR , BRAF, KRAS, HRAS, NRAS, ALK, ERBB2, and MET (exon 14 skipping mutations only). Next generation sequencing was performed to test for the presence of a rearrangement/fusion involving the ALK, RET, ROS1 or NTRK1 genes. Mutation nomenclature is based on build GRCh37 (hg19). Rearrangement nomenclature is based on a custom reference sequence using GRCh37 (hg19). For details about gene reference transcripts (GenBank accession numbers) and additional information about this test, see [email or web address] (Test ID LNGPR). CLINICAL CORRELATIONS Test results should be interpreted in context of clinical findings, tumor sampling, histopathology, and other laboratory data. If results obtained do not match other clinical or laboratory findings, please contact the laboratory for possible interpretation. Misinterpretation of results may occur if the information provided is inaccurate or incomplete. This test cannot differentiate between somatic and germline alterations. Additional testing may be necessary to clarify the significance of results if there is a potential hereditary risk. The presence or absence of a mutation or fusion may not be predictive of response to therapy in all patients. TECHNICAL LIMITATIONS This test does not detect large insertions, deletions, or duplications or genomic copy number variants (such as amplification). This assay has been shown to detect >99% of single base substitutions and >99 % of deletions/insertions (up to 50 bp) at >5% allele frequency, respectively. A negative (wild type) result does not rule out the presence of a mutation or rearrangement resulting in a targeted fusion that may be present but below the limits of detection of this assay. The analytical sensitivity of this assay is 5% with a minimum coverage of 100X for mutations and 5% with a minimum of 30 targeted fusion reads for fusions. Rare polymorphisms may be present that could lead to false negative or false positive CONTINUED ON NEXT PAGE DEPARTMENT OF PATHOLOGY, [address] [place] [address] Harry Contreras M.D. Director WILFRED # [id number] RUN DATE: 08/18/18 [facility] LAB LIVE PAGE 3 Patient: MORIAH CARLSON [id number] (Continued) ADDENDUM (Continued) results. Additional Information CLINICAL TRIALS Possible clinical trials of benefit for this patient can be found at the following sites: 1) ClinicalTrials.gov: www.clinicaltrials.gov/ct2/search/advanced 2) [facility]: www.[place]/research/clinical-trials/ 3) [facility] [place]: www.cancer.gov/clinicaltrials/search Specimen: Cells Tissue ID: [id number] #3 Released By Denia Palmer M.D. Addendum Signed (signature on file) Harry Contreras MD 1614 FINAL DIAGNOSIS 1. Lymph node, Station 7, Endobronchial ultrasound guided fine needle aspiration: -- Benign bronchial epithelium and lymphoid tissue. -- No malignancy identified. 2. Lymph node, R4, Endobronchial ultrasound guided fine needle aspiration: -- Benign bronchial epithelium and lymphoid tissue. -- No malignancy identified. 3. Hilar mass, right, Endobronchial ultrasound guided fine needle aspiration: -- Malignant. -- Squamous cell carcinoma. See comment. CONTINUED ON NEXT PAGE DEPARTMENT OF PATHOLOGY, [address] [place] [address] Harry Contreras M.D. Director [facility] # [id number] RUN DATE: 08/18/18 [facility] LAB LIVE PAGE 4 Patient: MORIAH CARLSON [id number] (Continued) FINAL DIAGNOSIS (Continued) Comment: The aspirate smears and formalin fixed cell block demonstrate a cohesive cytologically malignant squamous epithelial elements with out demonstrable keratinization. The following immunohistochemical stains are performed with appropriate controls. CK5/6 positive CK7 negative PDL 1 0% staining in tumor, 0% in lymphocytes, ALK negative Gene sequencing for targeted therapies is pending on air dried smears at [facility] ([facility]) and will be reported in an addendum. A cell block was prepared in the evaluation of this specimen. Smears and cell block reveal similar findings. #1. LYMPH NODE - US GUIDED ENDOBRONCHIAL ST 7 LYMPH NODE FINE NEEDLE ASPIRATION, #2. LYMPH NODE - US GUIDED ENDOBRONCHIAL R-4 LYMPH NODE FINE NEEDLE ASPIRATION, #3. CN Hilar - US GUIDED ENDOBRONCHIAL HILAR MASS FINE NEEDLE ASPIRATION CLINICAL HISTORY Pleural effusion, Hilar mass. #1) Station 7 lymph node. #2) R-4 lymph node. #3) Right Hilar mass. IMMEDIATE INTERPRETATION 1. Pass 1 3-inadequate, pass 2-adequate. 2. Pass 1 2-adequate. 3. Pass 1-adequate, passes 2-5 for additional material. CONTINUED ON NEXT PAGE DEPARTMENT OF PATHOLOGY, [address] [place] [address] Harry Contreras M.D. Director [facility] # [id number] RUN DATE: 08/18/18 [facility] LAB LIVE PAGE 5 Patient: MORIAH CARLSON [id number] (Continued) GROSS DESCRIPTION (Continued) GROSS DESCRIPTION #1) US guided endobronchial fine needle aspiration x 3 pass(es) with 3 alcohol fixed slides and needle rinse in formalin for cell block. #2) US guided endobronchial fine needle aspiration x 2 pass(es) with 4alcohol fixed slides andneedle rinse in formalin for cell block. #3) US guided endobronchial fine needle aspiration x 4 pass(es) with 2 alcohol fixed slides, 6 Air dried slide(s) and needle rinse in formalin for cell block. Signed by and Reported on: Harry Contreras MD 1552 END OF REPORT DEPARTMENT OF PATHOLOGY, [address] [place] [address] Harry Contreras M.D. Director [facility] # [id number] 2 RESULT: NO ALTERATIONS IDENTIFIED 3 Provided diagnosis: Lung adenocarcinoma No reportable somatic alterations were identified within the tested genes including ALK, BRAF, EGFR, ERBB2, HRAS, KRAS, MET, and NRAS (i.e. specimen is ALK, BRAF, EGFR, ERBB2, HRAS, KRAS, MET, and NRAS wild-type). No reportable fusions were identified involving the ALK, RET, ROS1, or NTRK1 genes. 4 ASSOCIATIONS BETWEEN GENE MUTATIONS/REARRANGEMENTS AND LUNG CANCER Current data suggests that the efficacy of targeted therapies in patients with non-small cell lung cancer is limited to tumors with mutations or rearrangements in certain genes. Thus, the absence of a detectable mutation and rearrangement within this tumor suggests that targeted therapies to the listed genes may have limited therapeutic value for this patient (1-7). REFERENCES 1. Mol Diagn. 2013 Sep;15(4):415-53 (PMID [id number]) 2. Oncologist. 2016 Aug;21(6):684-91 (PMID 80279723) 3. Lancet Oncol. 2016 July;17(5):642-50 (PMID [id number]) 4. Lancet Oncol. 2016 Sep;17(7):984-93 (PMID [id number]) 5. Cancer Discov. 2014;5(8):842-9 (PMID [id number]) 6. Cancer Discov. 2014;5(8):850-9 (PMID [id number]) 7. Valerie. Med. 2012;19(11):2419-72 (PMID [id number]) ADDITIONAL INFORMATION Microscopic examination was performed by a pathologist to identify areas of tumor for enrichment by macrodissection. Next generation sequencing was performed to test for the presence of a mutation within targeted regions of the following genes: EGFR, BRAF, KRAS, HRAS, NRAS, ALK, ERBB2, and MET (exon 14 skipping mutations only). Next generation sequencing was performed to test for the presence of a rearrangement/fusion involving the ALK, RET, ROS1 or NTRK1 genes. Mutation nomenclature is based on build GRCh37 (hg19). Rearrangement nomenclature is based on a custom reference sequence using GRCh37 (hg19). For details about gene reference transcripts (GenBank accession numbers) and additional information about this test, see [email or web address] (Test ID [email or web address]). CLINICAL CORRELATIONS Test results should be interpreted in context of clinical findings, tumor sampling, histopathology, and other laboratory data. If results obtained do not match other clinical or laboratory findings, please contact the laboratory for possible interpretation. Misinterpretation of results may occur if the information provided is inaccurate or incomplete. This test cannot differentiate between somatic and germline alterations. Additional testing may be necessary to clarify the significance of results if there is a potential hereditary risk. The presence or absence of a mutation or fusion may not be predictive of response to therapy in all patients. TECHNICAL LIMITATIONS This test does not detect large insertions, deletions, or duplications or genomic copy number variants (such as amplification). This assay has been shown to detect >99% of single base substitutions and >99% of deletions/insertions (up to 50 bp) at >5% allele frequency, respectively. A negative (wild type) result does not rule out the presence of a mutation or rearrangement resulting in a targeted fusion that may be present but below the limits of detection of this assay. The analytical sensitivity of this assay is 5% with a minimum coverage of 100X for mutations and 5% with a minimum of 30 targeted fusion reads for fusions. Rare polymorphisms may be present that could lead to false negative or false positive results. TEST CLASSIFICATION This test was developed and its performance characteristics determined by [facility] in a manner consistent with CLIA requirements. This test has not been cleared or approved by the U.S. Food and Drug Administration. 5 CLINICAL TRIALS Possible clinical trials of benefit for this patient can be found at the following sites: 1) ClinicalTrials.gov: www.clinicaltrials.gov/ct2/search/advanced 2) [facility]: www.[facility]/research/clinical-trials/ 3) [facility] [place]: www.cancer.gov/clinicaltrials/search 6 RESULT: Denia Palmer M.D. Test Performed by: [facility] - [address] [address] 7 SEE RESULT BELOW Name: MORIAH CARLSON : [address]: Kirstin Bergeron MD Acct: [id number] Unit: [id number] AGE: 72 Location: OR Re07/30/18 SEX: M Status: DEP [facility] [place] SPEC: [id number] WANDA: 07/30/18-1415 [facility] DR: Kirstin Bergeron MD REQ: [id number] RECD: 07/30/18 STATUS: DEMARCUS AKBAR DR: Brandon Sepulveda MD _ SOURCE: BODY FLUID SPDESC:PL RT LNG ORDERED: BF Cult/GS Procedure Result Reported Site Body Fluid Gram Stain Final 07/30/18- 1523 ML 4+ Nucleated Cells No Organisms Seen Preparation By Cytospin Smear Body Fluid Culture Final 08/03/18- 1004 ML No Growth Day 4 * ML - Main Lab . END OF REPORT DEPARTMENT OF PATHOLOGY, [address] [place] [address] Harry Contreras M.D. Director WILFRED # [id number] 8 REFERENCE VALUE Not Applicable 9 Test Performed by: [address] [address] 10 REFERENCE VALUE Not Applicable ADDITIONAL INFORMATION This test has been modified from the mailroom coordinator's instructions. Its performance characteristics were determined by [facility] in a manner consistent with CLIA requirements. This test has not been cleared or approved by the U.S. Food and Drug Administration. 11 Test Performed by: [facility] - [address] [address] 12 -- REFERENCE VALUE -- Synovial: <150/mcL Peritoneal: <500/mcL Pleural: <500/mcL Pericardial: <500/mcL 13 Blood, predominantly chronic inflammatory elements with macrophages and scattered reactive mesothelial elements. Minimal polymorphonuclear cells seen. Few mildly atypical cellular clusters favor reactive. Defer to cytologic examination Reviewed by Dr. Contreras 14 REFERENCE VALUE Not Applicable 15 Test Performed by: [facility] - [address] [address] 16 Please note The date recorded on the requisition indicates the sample (s) received were greater than 72 hours old upon arrival in our laboratory. Ref Range Not Established Disclaimer: This test was developed and its performance characteristics determined by [facility]. It has not been cleared or approved by the Food and Drug Administration. Test Performed: [facility] [id number] Dir: Arabella Waite MD 17 SEE RESULT BELOW Name: MORIAH CARLSON : [address]: Kirstin Bergeron MD Acct: [id number] Unit: [id number] AGE: 72 Location: OR Re07/30/18 SEX: M Status: AMARJIT SD SPEC: [id number] WANDA: 07/30/18 [facility] DR: Kirstin Bergeron MD REQ: [id number] RECD: 07/30/18 STATUS: LUIS AKBAR DR: Lydia Larios MD _ ORDERED: LEVEL 4, NG THIN LAYER FINAL DIAGNOSIS Pleural fluid, right: -- Negative for malignant cells. -- Chronic inflammation. A cell block was prepared in the evaluation of this specimen. Smears and cell block reveal similar findings. 1. PLEURAL - RIGHT PLEURAL FLUID CLINICAL HISTORY Lung cancer. Right pleural effusion. GROSS DESCRIPTION 600 ml of cloudy brown/orange fluid. Signed by and Reported on: Harry Contreras MD 1419 END OF REPORT DEPARTMENT OF PATHOLOGY, [address] [place] [address] Harry Contreras M.D. Director [facility] # [id number] Filter Cleaner: [id number] Filter Cleaner: [id number] Normal Range 180 to 914 Indeterminate Range 145 to 180 Deficient Range <145 21 Because ethnic data is not always readily available, this report includes an eGFR for both -Americans and non- Americans. The National Kidney Disease Education Program (NKDEP) does not endorse the use of the MDRD equation for patients that are not between the ages of 18 and 70, are , have extremes of body size, muscle mass, or nutritional status, or are non- or non-. According to the National Kidney Foundation, irrespective of diagnosis, the stage of the disease is based on the level of kidney function: Stage Description GFR(mL/min/1.73 m(2)) 1 Kidney damage with normal or decreased GFR 90 2 Kidney damage with mild decrease in GFR 60-89 3 Moderate decrease in GFR 30-59 4 Severe decrease in GFR 15-29 5 Kidney failure <15 (or dialysis) 22 Reference ranges based on room air. Procedures Date Code Description Status 10/13/2018 41763 EKG Tracing & Interpretation Completed 07/30/2018 76048 Thoracentesis W/ Img Guidance Completed 07/30/2018 82553 With Endobronchial Ultrasound Guided Completed 07/30/2018 22557 Bronchoscopy, W/Transbronchial Needle Aspiration Biopsy Completed Addl Lobe 03/17/2018 51205 Holter Monitor Review (24 hr)dr review & interp only Completed 03/12/2018 94083 ECG Monitor/Recording W/Visual Superimposition Scanning Completed 03/08/2018 25665 EKG Tracing & Interpretation Completed 08/26/2017 03938 EKG Tracing & Interpretation Completed 06/11/2017 76343 Spirometry Incl Graphic Record Completed 05/15/2017 48776 Implantable Cardio System Loop Recorder Sys Remota Data Completed Acquistio 05/15/2017 82347 Interrogation Dev Loop Recorder Incl Physician Completed Analysis,Rev,Repor 04/14/2017 75730 Implantable Cardio System Loop Recorder Sys Remota Data Completed Acquistio 04/14/2017 30346 Interrogation Dev Loop Recorder Incl Physician Completed Analysis,Rev,Repor 03/14/2017 87188 Interrogation Dev Loop Recorder Incl Physician Completed Analysis,Rev,Repor 03/14/2017 34468 Implantable Cardio System Loop Recorder Sys Remota Data Completed Acquistio 02/11/2017 27435 Implantable Cardio System Loop Recorder Sys Remota Data Completed Acquistio 02/11/2017 81492 Interrogation Dev Loop Recorder Incl Physician Completed Analysis,Rev,Repor 01/11/2017 79591 Implantable Cardio System Loop Recorder Sys Remota Data Completed Acquistio 01/11/2017 44683 Interrogation Dev Loop Recorder Incl Physician Completed Analysis,Rev,Repor 12/11/2016 46690 Implantable Cardio System Loop Recorder Sys Remota Data Completed Acquistio 12/11/2016 84823 Interrogation Dev Loop Recorder Incl Physician Completed Analysis,Rev,Repor 11/10/2016 98932 Implantable Cardio System Loop Recorder Sys Remota Data Completed Acquistio 11/10/2016 22948 Interrogation Dev Loop Recorder Incl Physician Completed Analysis,Rev,Repor 10/10/2016 76880 Implantable Cardio System Loop Recorder Sys Remota Data Completed Acquistio 10/10/2016 46702 Interrogation Dev Loop Recorder Incl Physician Completed Analysis,Rev,Repor 09/09/2016 75863 Interrogation Dev Loop Recorder Incl Physician Completed Analysis,Rev,Repor 09/09/2016 55893 Implantable Cardio System Loop Recorder Sys Remota Data Completed Acquistio 09/05/2016 40770 EKG Tracing & Interpretation Completed 08/15/2016 85833 Moderate Sedation Services; Same Phys Each Additional 15 Completed Mins 08/15/2016 50542 Moderate Sedation Services; Same Phys Intl 15 Mins; PT >=5 Completed Years 08/15/2016 45902 Ultrasound Guidance For Vascular Access Completed 08/15/2016 26208 Oopog-Dykjmaaiv-Vwpsevhgbz Completed 08/15/2016 68872 Revascularization,Endovascular,Transluminal Angioplasty Completed 08/15/2016 95311 Revascularization,Endovascular,Open/Percutaneous,Iliac Completed Artery 08/09/2016 62572 Implantable Cardio System Loop Recorder Sys Remota Data Completed Acquistio 08/09/2016 65129 Interrogation Dev Loop Recorder Incl Physician Completed Analysis,Rev,Repor 07/09/2016 46518 Implantable Cardio System Loop Recorder Sys Remota Data Completed Acquistio 07/09/2016 70480 Interrogation Dev Loop Recorder Incl Physician Completed Analysis,Rev,Repor 06/08/2016 13918 Interrogation Dev Loop Recorder Incl Physician Completed Analysis,Rev,Repor 06/08/2016 84138 Implantable Cardio System Loop Recorder Sys Remota Data Completed Acquistio 05/08/2016 07931 Implantable Cardio System Loop Recorder Sys Remota Data Completed Acquistio 05/08/2016 57513 Interrogation Dev Loop Recorder Incl Physician Completed Analysis,Rev,Repor 04/07/2016 04307 Implantable Cardio System Loop Recorder Sys Remota Data Completed Acquistio 04/07/2016 30401 Interrogation Dev Loop Recorder Incl Physician Completed Analysis,Rev,Repor 03/07/2016 21028 Implantable Cardio System Loop Recorder Sys Remota Data Completed Acquistio 03/07/2016 57861 Interrogation Dev Loop Recorder Incl Physician Completed Analysis,Rev,Repor 02/05/2016 72316 Implantable Cardio System Loop Recorder Sys Remota Data Completed Acquistio 02/05/2016 12493 Interrogation Dev Loop Recorder Incl Physician Completed Analysis,Rev,Repor 01/05/2016 04281 Implantable Cardio System Loop Recorder Sys Remota Data Completed Acquistio 01/05/2016 94596 Interrogation Dev Loop Recorder Incl Physician Completed Analysis,Rev,Repor 12/05/2015 22920 Implantable Cardio System Loop Recorder Sys Remota Data Completed Acquistio 12/05/2015 48194 Interrogation Dev Loop Recorder Incl Physician Completed Analysis,Rev,Repor 11/04/2015 29112 Interrogation Dev Loop Recorder Incl Physician Completed Analysis,Rev,Repor 11/04/2015 91570 Implantable Cardio System Loop Recorder Sys Remota Data Completed Acquistio 10/04/2015 78845 Implantable Cardio System Loop Recorder Sys Remota Data Completed Acquistio 10/04/2015 89772 Interrogation Dev Loop Recorder Incl Physician Completed Analysis,Rev,Repor 09/03/2015 11951 Implantable Cardio System Loop Recorder Sys Remota Data Completed Acquistio 09/03/2015 39781 Interrogation Dev Loop Recorder Incl Physician Completed Analysis,Rev,Repor 08/24/2015 74964 EKG Tracing & Interpretation Completed 08/03/2015 36886 Implantable Cardio System Loop Recorder Sys Remota Data Completed Acquistio 08/03/2015 61632 Interrogation Dev Loop Recorder Incl Physician Completed Analysis,Rev,Repor 07/03/2015 89905 Implantable Cardio System Loop Recorder Sys Remota Data Completed Acquistio 07/03/2015 44503 Interrogation Dev Loop Recorder Incl Physician Completed Analysis,Rev,Repor 06/02/2015 93863 Implantable Cardio System Loop Recorder Sys Remota Data Completed Acquistio 06/02/2015 78260 Interrogation Dev Loop Recorder Incl Physician Completed Analysis,Rev,Repor 05/02/2015 91616 Implantable Cardio System Loop Recorder Sys Remota Data Completed Acquistio 05/02/2015 58752 Interrogation Dev Loop Recorder Incl Physician Completed Analysis,Rev,Repor 04/01/2015 60084 Interrogation Dev Loop Recorder Incl Physician Completed Analysis,Rev,Repor 04/01/2015 74055 Implantable Cardio System Loop Recorder Sys Remota Data Completed Acquistio 02/28/2015 92518 Implantable Cardio System Loop Recorder Sys Remota Data Completed Acquistio 02/28/2015 16583 Interrogation Dev Loop Recorder Incl Physician Completed Analysis,Rev,Repor 01/27/2015 52125 Implantable Cardio System Loop Recorder Sys Remota Data Completed Acquistio 01/27/2015 82782 Interrogation Dev Loop Recorder Incl Physician Completed Analysis,Rev,Repor 01/17/2015 11559 Loop Recorder Device Eval W/Iterative Adj Implant Loop Completed Recorder 12/26/2014 79271 Implantable Cardio System Loop Recorder Sys Remota Data Completed Acquistio 12/26/2014 46497 Interrogation Dev Loop Recorder Incl Physician Completed Analysis,Rev,Repor 12/19/2014 57855 Implantable Cardio System Loop Recorder Sys Remota Data Completed Acquistio 12/19/2014 79593 Interrogation Dev Loop Recorder Incl Physician Completed Analysis,Rev,Repor 11/17/2014 03979 Implantable Cardio System Loop Recorder Sys Remota Data Completed Acquistio 11/17/2014 54968 Interrogation Dev Loop Recorder Incl Physician Completed Analysis,Rev,Repor 10/17/2014 57498 EKG Tracing & Interpretation Completed 10/17/2014 05552 Loop Recorder Device Eval W/Iterative Adj Implant Loop Completed Recorder 10/02/2014 36969 Implantable Cardio System Loop Recorder Sys Remota Data Completed Acquistio 10/02/2014 23938 Interrogation Dev Loop Recorder Incl Physician Completed Analysis,Rev,Repor 08/28/2014 27288 Implantable Cardio System Loop Recorder Sys Remota Data Completed Acquistio 08/28/2014 39581 Interrogation Dev Loop Recorder Incl Physician Completed Analysis,Rev,Repor 08/16/2014 49461 Implantable Cardio System Loop Recorder Sys Remota Data Completed Acquistio 08/16/2014 31509 Interrogation Dev Loop Recorder Incl Physician Completed Analysis,Rev,Repor 08/08/2014 38402 Implantable Cardio System Loop Recorder Sys Remota Data Completed Acquistio 08/08/2014 71881 Interrogation Dev Loop Recorder Incl Physician Completed Analysis,Rev,Repor 07/31/2014 87699 Implantable Cardio System Loop Recorder Sys Remota Data Completed Acquistio 07/31/2014 05666 Interrogation Dev Loop Recorder Incl Physician Completed Analysis,Rev,Repor 07/19/2014 90649 Interrogation Device Eval,Implantable Loop Recorder System Completed 06/27/2014 98968 Interrogation Dev Loop Recorder Incl Physician Completed Analysis,Rev,Repor 06/27/2014 61865 Implantable Cardio System Loop Recorder Sys Remota Data Completed Acquistio 05/29/2014 14034 Implantable Cardio System Loop Recorder Sys Remota Data Completed Acquistio 05/29/2014 94316 Interrogation Dev Loop Recorder Incl Physician Completed Analysis,Rev,Repor 05/11/2014 27839 EEG Recording Awake & Drowsy Completed 04/25/2014 64659 Implant Cardiac Loop Recorder Completed 04/12/2014 77165 Color Flow Doppler/Interp & Reprt Completed 04/12/2014 48058 Pulse Wave/Continuous-Interp.RPT Completed 04/12/2014 63394 Echocardiography, Transesophageal, Real Time W/Image 2D Completed W/W/O M-M 04/12/2014 47755 EKG, Interpretation Only Completed 12/02/2013 64454 Carotid Doppler,Bilateral Completed 12/01/2013 63636 ECHO Transthoracic, Real-Time 2D With Doppler And Color Completed Flow 11/16/2013 65055 EKG Tracing & Interpretation Completed 09/09/2012 48379 EKG Tracing & Interpretation Completed Encounters Type Date Location Provider Dx Diagnosis Office Visit 08/12/2018 Pulmonology Bhavin Bergeron, C34.90 Malignant 11:30a Sleep Services Of [facility] Calculus Tutor part of [facility] bronchus or lung Office Visit 07/28/2018 PulmonGerald Acali, 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 9:30a Sleep Services Of MD flaco Sauceda R91.8 Other nonspecific abnormal finding of lung field C34.90 Malignant neoplasm of unsp part of unsp bronchus or lung J98.4 Other disorders of lung Office Visit 03/30/2018 11:30a [facility] Neida Jane I48.92 Unspecified Of Sohail Diaz N.PNaif atrial flutter 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 I48.3 Typical atrial Of Sohail Cuba M.D. 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 I48.3 Typical atrial Of Sohail Cuba M.D. 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 I48.3 Typical atrial 11:30a Of Sohail Cuba M.D. flutter Office Visit 07/02/2016 [facility] Kyle Crowder I73.89 Other specified 2:30p Medicine Of Sohail Brody M.D. peripheral vascular diseases Office Visit 06/14/2016 [facility] Radha Swift, I48.3 Typical atrial 11:15a Assoc,renny Jensen flutter Hospitalists R42 Dizziness and giddiness E86.0 Dehydration Office Visit 06/13/2016 11:15a [facility] Radha Swift, I48.3 Typical atrial Assoc,renny Jensen flutter Hospitalists R42 Dizziness and giddiness E86.0 Dehydration Office Visit 05/12/2016 11:30a [facility] Lou Blanco, F01.50 Vascular dementia Services Of Sohail Jensen without behavioral disturbance D68.61 Antiphospholipid syndrome Z79.01 termination clerk (current) use of anticoagulants Office Visit 11/07/2015 11:00a [place] Mar Blanco, F01.50 Vascular dementia Services Of Sohail Jensen without behavioral disturbance D68.61 Antiphospholipid syndrome Office Visit 08/24/2015 1:00p [facility] Billy Tavares I48.0 Paroxysmal atrial Of Sohail Cuba M.D. fibrillation I25.110 Athscl heart disease of solomon cor art w unstable ang pctrs I10 Essential (primary) hypertension Office Visit 05/09/2015 [facility] Lou F01.50 Vascular 10:30a Clinic Mikey Blanco dementia without behavioral disturbance D68.61 Antiphospholipid syndrome Office Visit 03/26/2015 3:30p [place] Mar Blanco, I63.9 Cerebral Services Of Sohail Jensen infarction, unspecified F01.50 Vascular dementia without behavioral disturbance D68.61 Antiphospholipid syndrome Office Visit 02/19/2015 11:00a Orth[facility] Tamara Patton S46.011A Strain of Services Of MD soni/tend the C.M.A. rotator cuff of right shoulder, init S46.011D Strain of nae/jennifer the rotator cuff of right shoulder, subs Office Visit 12/20/2014 10:00a Orthopedic Tamara Patton S46.011A Strain of Services Of MD soni/tend the C.M.A. 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 Fibrillation Office Visit 07/01/2014 [facility] Lou 368.12 Visual Loss 2:10p Clinic Chad Blanco M.D. Office Visit 06/06/2014 [facility] Lou 434.91 Occlusion 10:30a Clinic Marquez Blanco Artery M.Chaitanya Unspec W/ Cerebral Infarc 780.97 Altered Mental Status 780.79 Malaise And Fatigue Other Office Visit 05/11/2014 [facility] Lou Blanco, 780.97 Altered 8:48a Clinic Mikey Mental Status 781.94 Facial Weakness 780.79 Malaise And Fatigue Other 434.91 Occlusion Cerebral Artery Unspec W/ Cerebral Infarc Office Visit 04/20/2014 10:45a [facility] Billy D. 434.91 Occlusion Of Sohail Cuba M.D. Cerebral Artery Unspec W/ Cerebral Infarc 305.1 Tobacco Use Disorder Office Visit 04/13/2014 12:42p [facility] [place] 434.91 Occlusion Assoc,renny Lawson M.D. Cerebral Artery Hospitalists Unspec W/ Cerebral Infarc V87.39 Contact W/ And (Suspected)Exp Other Potentially Hazard Subst 401.9 Hypertension Unspec 305.1 Tobacco Use Disorder Office Visit 04/12/2014 9:54a [facility] Lou Blanco, 443.9 Peripheral Services Of Sohail Jensen Vascular Disease Unspec 780.97 Altered Mental Status Office Visit 04/11/2014 12:39p [facility] Radha Swift 434.91 Occlusion Assocrenny M.D. Cerebral Artery Hospitalists Unspec W/ Cerebral Infarc 305.1 Tobacco Use Disorder 401.9 Hypertension Unspec V87.39 Contact W/ And (Suspected)Exp Other Potentially Hazard Subst Office Visit 04/11/2014 9:52a [facility] Lou Blanco 443.9 Peripheral Services Of Sohail Jensen Vascular Disease Unspec 986 Toxic Effect Of Carbon Monoxide 443.9 Peripheral Vascular Disease Unspec 986 Toxic Effect Of Carbon Monoxide Office Visit 11/16/2013 11:45a [facility] Acme Chaitanya 785.2 Murmur Cardiac Of Sohail Cuba M.D. Undiagnosed 785.9 Cardiovascular Symptoms Other Office Visit 09/09/2012 2:15p [facility] Billy Tavares 414.9 Ischemic Heart Of Sohail Cuba M.D. Disease Chronic Unspec V72.81 Examination Preoperative Cardiovascular Plan of Treatment Future Appointment(s):11/19/2018 3:30 pm - Lou Blanco M.D. at [facility]/13/2018 - Billy Cuba M.D.I25.10 Atherosclerotic heart disease of solomon coronary artery withFollow up:6 tgkakcE43.92 Unspecified atrial flutter
[2018-10-28] MEDS ORDERED: Diltiazem IV push/loading dose 5 MG/ML 5 ML vial (25 mg) IV SLOW PU ONE ×2 (15:03→16:11)
[2018-10-28] MEDS ORDERED: Lidocaine PATCH 5%* 1 PATCH TRANSDERM SCH (16:00)
[2018-10-28 16:58] VITALS: BP 135/71
[2018-10-28] MEDS ORDERED: Lidocaine Patch REMOVE* 1 NOTE MISC SCH ×2 (21:00)
== END 2018-10-28 16:15 | disposition home or self-care (01) ==
LOC: ED 11:36
DX: S22.39XA Fracture of one rib, unspecified side, initial encounter for closed fracture (principal); W19.XXXA Unspecified fall, initial encounter; Y92.9 Unspecified place or not applicable; I48.91 Unspecified atrial fibrillation; E11.9 Type 2 diabetes mellitus without complications; E78.00 Pure hypercholesterolemia, unspecified; I10 Essential (primary) hypertension; I25.2 Old myocardial infarction; K21.9 Gastro-esophageal reflux disease without esophagitis; Z86.73 Personal history of transient ischemic attack (TIA), and cerebral infarction without residual deficits; Z79.01 Long term (current) use of anticoagulants; Z79.899 Other long term (current) drug therapy; Z79.84 Long term (current) use of oral hypoglycemic drugs; Z87.891 Personal history of nicotine dependence; R91.1 Solitary pulmonary nodule; J90 Pleural effusion, not elsewhere classified; M19.012 Primary osteoarthritis, left shoulder
CPT/HCPCS: 36415; 71046; 71260; 74177; 80053; 85025; 85610; 86850; 86900; 86901; 93005; 96361; 96374; 96376; 99284; A9270-GY; Q9967

== ENCOUNTER 2018-12-24 13:21 | Emergency (ER) | payer MEDICARE, OTHER ==
[2018-12-24 13:40] LABS: ABS Eosinophils 0.1 10^3/ul (0-0.6); ABS Lymphocytes 0.2 10^3/ul (1.0-4.8); ABS Neutrophils 7.1 10^3/ul (1.5-7.7); Eosinophil % 0.7 %; Hematocrit 34 % (42-52); Hemoglobin 11.6 g/dL (14.0-18.0); Lymphocyte % 2.2 %; Mean Corpuscular HGB Conc 34 g/dL (31-36); Mean Corpuscular Hemoglobin 33 pg (27-31); Mean Corpuscular Volume 97 fL (80-94); Mean Platelet Volume 6.1 fL (7.4-10.4); Platelet Count 197 10^3/uL (150-450); Red Blood Count 3.53 10^6 /uL (4.18-5.48); Red Cell Distribution Width 18 % (10-15); White Blood Count 8.4 10^3/uL (3.5-10.8)
[2018-12-24 13:57] LABS: Activated Partial Thrombo Time 70.8 seconds (26.0-38.0); INR 3.85 (0.82-1.09)
[2018-12-24 14:15] LABS: Albumin/Globulin Ratio 1.5 (1-3); BUN/Creatinine Ratio 16.7 (8-20); Calcium 9.5 mg/dL (8.6-10.3); EGFR African American 117.4 (>60); Globulin 2.7 g/dL (2-4); Total Bilirubin 0.5 mg/dL (0.2-1.0); Total Protein 6.7 g/dL (6.4-8.9)
[2018-12-24] MEDS ORDERED: NS 0.9% 1000 ML** 1,000 ML IV ONE (14:15)
[2018-12-24 14:16] LABS: Potassium 5.1 mmol/L (3.5-5.0); Troponin I 0.01 ng/mL (<0.04)
[2018-12-24 14:17] LABS: CKMB ng/mL 1.6 ng/mL (0.6-6.3)
--- OUTSIDE RECORDS SUMMARY | 2018-12-24 14:25 | XMS REPORT | Continuity of Care Document ---
:1945 External Reference #:[id number] Author Name Lou Blanco M.D. (transmitted by agent of provider Rhianna Branch) Address [address], [place] [address] Care Team Providers Name Role Phone Brandon Sepulveda MD - Family Care Team Information Transmission Assembler [phone] Medicine Problems Active Problems Provider Date Ischemic stroke [...] Lou Blanco M.D. Onset: 2017 Note: Right Social History Type Date Description Comments Sex Unknown Tobacco Use Start: Unknown End: Former Cigarette Smoker 55 years 1 Pack Daily Smoking Status Reviewed: 12/22/18 Former Cigarette Smoker 55 years 1 Pack Daily ETOH Use Currently consumes 1 beer per day alcohol Recreational Drug Use Denies Drug Use Tobacco Use Start: Unknown End: Patient is a former quit ~ 2014 Unknown smoker Exercise Type/Frequency Does not exercise Allergies, Adverse Reactions, Alerts Description No Known Drug Allergies Medications Active Medications SIG Qnty Indications Ordering Provider Date Metformin HCL 2 tablet po Am,1 Unknown 500mg tablet po PM Tablets Vitamin C 2 by mouth every Unknown 1000mg Tablets day Warfarin Sodium currently taking Darlow, Brandon A., 5mg 7.5 MG daily MD Tablets Aspirin daily Unknown 81mg Vitamin B Complex 1 by mouth every Unknown 100mg day Tablets Calcium 500 qd Unknown 500mg Magnesium 1 by mouth every Unknown 250mg Tablets day Tamsulosin HCL 1 by mouth every Unknown 0.4mg day Capsules Diltiazem HCL ER take 1 capsule by Unknown Coated Beads mouth once daily 180mg Caps ER 24HR Rosuvastatin Calcium 1 by mouth every Darlow, Brandon A., 20mg day MD Tablets Ipratropium [place] 1 spray each Unknown 0.06% nostril as needed Solution Paxil 1 by mouth every Unknown 20mg Tablets day Vitamin E 1 by mouth every Unknown 400Unit day Capsules Vitamin D3 once daily Unknown Fish Oil once daily Unknown Immunizations Description No Information Available Vital Signs Date Vital Result Comment 12/22/2018 2:08pm Height 71 inches 5'11" Weight 198.00 lb Heart Rate 100 /min BP Systolic 108 mmHg BP Diastolic 72 mmHg BMI (Body Mass Index) 27.6 kg/m2 11/19/2018 3:38pm Height 71 inches 5'11" Weight 196.00 lb Heart Rate 64 /min BP Systolic 124 mmHg BP Diastolic 70 mmHg BMI (Body Mass Index) 27.3 kg/m2 Results Test Date Facility Test Result H/L Range Note CBC Auto Diff 11/04/2018 [facility] White Blood 1.9 10^3/uL Low 3.5-10.[address] [place] [address] [phone] Red Blood Count 3.11 10^6/uL Low 4.18-5.48 Hemoglobin 10.5 g/dL Low 14.0-18.0 Hematocrit 30 % Low 42-52 Mean Corpuscular Volume 96 fL High 80-94 Mean Corpuscular Hemoglobin 34 pg High 27-31 Mean Corpuscular HGB Conc 35 g/dL Normal 31-36 Red Cell Distribution Width 24 % High 10-15 1 Platelet Count 76 10^3/uL Low 150-450 2 Mean Platelet Volume 7.1 fL Low 7.4-10.4 Abs Neutrophils 1.4 10^3/uL Low 1.5-7.7 Abs Lymphocytes 0.1 10^3/uL Low 1.0-4.8 Abs Monocytes 0.3 10^3/uL Normal 0-0.8 Abs Eosinophils 0.0 10^3/uL Normal 0-0.6 Abs Basophils 0.0 10^3/uL Normal 0-0.2 Abs Nucleated RBC 0.0 10^3/uL Granulocyte % 75.8 % Lymphocyte % 7.8 % Monocyte % 14.3 % Eosinophil % 1.6 % Basophil % 0.5 % Nucleated Red Blood Cells % 0.4 Laboratory test 07/30/2018 [facility] Cytology SEE RESULT [address] Non-Adjunct [place] [address] [phone] Lung Cancer 07/30/2018 [facility] LNGPR Result See Comment 4 Targeted Gene [address] [place] [address] [phone] LNGPR Result See Comment 5 LNGPR Interpretation See Comment 6 LNGPR Additional Information See Comment 7 LNGPR Specimen Cells LNGPR Tissue Id [id number] #3 LNGPR Released By See Comment 8 Body Fluid C&S 07/30/2018 [facility] Body Fluid Cult SEE RESULT [address] [place] [address] [phone] Lactate 07/30/2018 [facility] Lactate 147 U/L 10 Dehydrogenase,BF [address] Dehydrogenase, [place] [address] BF [phone] Fluid Source Pleural 11 Body Fluid Total 07/30/2018 [facility] Total Protein, BF 3.6 g/ dL [address] [place] [address] [phone] Fluid Source Pleural 13 Body Fluid Cell 07/30/2018 [facility] Body Fluid Pleural Fluid Count [address] [place] [address] [phone] Body Fluid Appearance Bloody Body Fluid Color [place] Body Fluid Volume 8 mL Body Fluid WBC 2955 /mcL Normal 14 Body Fluid RBC 65327 /mcL Body Fluid Neutrophils 7 % Body Fluid Lymph 76 % Body Fluid [place] 16 % Body Fluid Eosinophil 1 % Body Fluid Other Cells 2 Body Fluid Total Cells Counted 100 Fluid Reviewed By (SEE NOTE) 15 Body Fluid Glucose 07/30/2018 [facility] Glucose, BF 151 mg/dL [address] [place] [address] [phone] Fluid Source PLEURAL 17 Laboratory test 07/30/2018 [facility] Body Fluid PH 8.0 [address] [place] [address] [phone] Laboratory test 07/30/2018 [facility] Cytology SEE RESULT [address] Non-Adjunct [place] [address] [phone] Laboratory test 07/30/2018 [facility] Point of Care 173 mg/dL High 70-10 [address] Glucose 0 [place] [address] [phone] Laboratory test 07/14/2018 [facility] Point of Care 176 mg/dL High 70-10 [address] Glucose 0 [place] [address] [phone] 1 Consistent with Previous Results Reported on 10/22/18 2 Consistent with Previous Results Reported on 10/28/18 3 SEE RESULT BELOW Name: MORIAH CARLSON : [address]: Kirstin Bergeron MD Acct: [id number] Unit: [id number] AGE: 72 Location: OR Re07/30/18 SEX: M Status: AMARJIT SONG SPEC: [id number] WANDA: 07/30/18-[address] [facility] [address]: Kirstin Bergeron MD REQ: [id number] RECD: 07/30/181799 STATUS: SOUT _ ORDERED: FNA-IMG GUID BX/3, CY ADEQ-ADDL P/2, LEVEL 4/3, CYTO ADEQ-1ST P/3, IMMUN IMMUNO-ADDL/2, IMMUNO-QUANT ADDENDUM Lung Panel with Rearrangement Tumor has been performed at [place], [place]. The testing reveals: Received: 04 Aug [...] REFERENCES 1. Mol Diagn. 2013 Sep;15(4):415-53 (PMID [id number]) 2. Oncologist. 2016 Aug;21(6):684-91 (PMID [id number]) 3. Lancet Oncol. 2016 July;17(5):642-50 (PMID [id number]) 4. Lancet Oncol. 2016 Sep;17(7):984-93 (PMID [id number]) CONTINUED ON NEXT PAGE DEPARTMENT OF PATHOLOGY, [address] [place] [address] Harry Contreras M.D. Director [facility] # [id number] RUN DATE: 08/18/18 [facility] LAB LIVE PAGE 2 Patient: MORIAH CARLSON [id number] (Continued) ADDENDUM (Continued) 5. Cancer Discov. 2015 Oct;5(8):842-9 (PMID 18199156) 6. Cancer Discov. 2015 Oct;5(8):850-9 (PMID 77188095) 7. Valerie. Med. 2013 Jan;19(11):1469-72 (PMID [id number]) ADDITIONAL INFORMATION Microscopic examination was performed by [...] and additional information about this test, see [email or web address] (Test ID LNGPR). CLINICAL CORRELATIONS Test results [...] CONTINUED ON NEXT PAGE DEPARTMENT OF PATHOLOGY, [address] [place] [address] Harry Contreras M.D. Director [facility] # [id number] RUN DATE: 08/18/18 [facility] LAB LIVE PAGE 3 Patient: MORIAH CARLSON [id number] (Continued) ADDENDUM (Continued) results. Additional Information CLINICAL TRIALS Possible clinical trials of benefit for this patient can be found at the following sites: 1) ClinicalTrials.gov: www.clinicaltrials.gov/ct2/search/advanced 2) [facility]: www.[facility]/research/clinical-trials/ 3) [employer] [place]: www.cancer.gov/clinicaltrials/search Specimen: Cells Tissue ID: [id number] #3 Released By Denia Palmer M.D. Addendum [...] CONTINUED ON NEXT PAGE DEPARTMENT OF PATHOLOGY, [address] [place] [address] Harry Contreras M.D. Director CLIA # [id number] RUN DATE: 08/18/18 [facility] LAB LIVE PAGE 4 Patient: MORIAH CARLSON [id number] (Continued) FINAL DIAGNOSIS (Continued) Comment: The aspirate smears and formalin fixed cell block demonstrate a cohesive cytologically malignant squamous epithelial elements with out demonstrable keratinization. The following immunohistochemical stains are performed with appropriate controls. CK5/6 positive CK7 negative PDL 1 0% staining in tumor, 0% in lymphocytes, ALK negative Gene sequencing for targeted therapies is pending on air dried smears at [facility] ([facility]) and will be reported in an addendum. [...] CONTINUED ON NEXT PAGE DEPARTMENT OF PATHOLOGY, [address] [place] [address] Harry Contreras M.D. Director [facility] # [id number] RUN DATE: 08/18/18 [facility] LAB LIVE PAGE 5 Patient: MORIAH CARLSON [id number] (Continued) GROSS DESCRIPTION (Continued) GROSS DESCRIPTION #1) [...] 1552 END OF REPORT DEPARTMENT OF PATHOLOGY, [address] [place] [address] Harry Contreras M.D. Director [facility] # [id number] 4 RESULT: NO ALTERATIONS IDENTIFIED 5 Provided diagnosis: Lung adenocarcinoma No reportable somatic alterations were identified within the tested genes including ALK, BRAF, EGFR, ERBB2, HRAS, KRAS, MET, and NRAS (i.e. specimen is ALK, BRAF, EGFR, ERBB2, HRAS, KRAS, MET, and NRAS wild-type). No reportable fusions were identified involving the ALK, RET, ROS1, or NTRK1 genes. 6 ASSOCIATIONS BETWEEN GENE MUTATIONS/REARRANGEMENTS AND LUNG CANCER [...] REFERENCES 1. Mol Diagn. 2013 Sep;15(4):415-53 (PMID 79590423) 2. Oncologist. 2016 Aug;21(6):684-91 (PMID 10784371) 3. Lancet Oncol. 2016 July;17(5):642-50 (PMID 20406350) 4. Lancet Oncol. 2016 Sep;17(7):984-93 (PMID 10928145) 5. Cancer Discov. 2014;5(8):842-9 (PMID 20502590) 6. Cancer Discov. 2014;5(8):850-9 (PMID 49004737) 7. Valerie. Med. 2013 Jan;19(11):1469-70 (PMID 85875150) ADDITIONAL INFORMATION Microscopic examination was performed by [...] and additional information about this test, see [email or web address] (Test ID LNGPR). CLINICAL CORRELATIONS Test results [...] developed and its performance characteristics determined by [facility] in a manner consistent with CLIA requirements. This test has not been cleared or approved by the U.S. Food and Drug Administration. 7 CLINICAL TRIALS Possible clinical trials of benefit for this patient can be found at the following sites: 1) ClinicalTrials.gov: www.clinicaltrials.gov/ct2/search/advanced 2) [facility]: www.[facility]/research/clinical-trials/ 3) [facility] [place]: www.cancer.gov/clinicaltrials/search 8 RESULT: Denia Palmer M.D. Test Performed by: [facility] - [address] [address] 9 SEE RESULT BELOW Name: MORIAH CARLSON : [address]: Kirstin Bergeron MD Acct: [id number] Unit: [id number] AGE: 72 Location: OR Re07/30/18 SEX: M Status: AMARJIT SDC SPEC: [id number] WANDA: 07/30/[address] [facility] [address]: Kirstin Bergeron MD REQ: [id number] RECD: 07/30/18 STATUS: DEMARCUS AKBAR DR: Brandon Sepulveda MD _ SOURCE: BODY FLUID SPDESC:PL RT LNG ORDERED: MUSA Herrera/SHANT Procedure Result Reported Site Body Fluid Gram Stain Final 07/30/18- 1523 ML 4+ Nucleated Cells No Organisms Seen Preparation By Cytospin Smear Body Fluid Culture Final 08/03/18- 1004 ML No Growth Day 4 * ML - Main Lab . END OF REPORT DEPARTMENT OF PATHOLOGY, [address] [place] [address] Harry Contreras M.D. Director [facility] # [id number] 10 REFERENCE VALUE Not Applicable 11 Test Performed by: [facility] - [address] [address] 12 REFERENCE VALUE Not Applicable ADDITIONAL INFORMATION This test has been modified from the cemetery workers supervisor's instructions. Its performance characteristics were determined by [facility] in a manner consistent with CLIA requirements. This test has not been cleared or approved by the U.S. Food and Drug Administration. 13 Test Performed by: [facility] - [address] [address] 14 -- REFERENCE VALUE -- Synovial: <150/mcL Peritoneal: <500/mcL Pleural: <500/mcL Pericardial: <500/mcL 15 Blood, predominantly chronic inflammatory elements with macrophages and scattered reactive mesothelial elements. Minimal polymorphonuclear cells seen. Few mildly atypical cellular clusters favor reactive. Defer to cytologic examination Reviewed by Dr. Contreras 16 REFERENCE VALUE Not Applicable 17 Test Performed by: [address] [address] 18 Please note The date recorded on the requisition indicates the sample (s) received were greater than 72 hours old upon arrival in our laboratory. Ref Range Not Established Disclaimer: This test was developed and its performance characteristics determined by [facility]. It has not been cleared or approved by the Food and Drug Administration. Test Performed: [facility] [address] [id number] Dir: Arabella Waite MD 19 SEE RESULT BELOW Name: MORIAH CARLSON : [address]: Kirstin Bergeron MD Acct: [id number] Unit: [id number] AGE: 72 Location: OR Re07/30/18 SEX: M Status: [place] [facility] SPEC: [id number] WANDA: 07/30/18-[address] [facility] [address]: Kirstin Bergeron MD REQ: [id number] RECD: 07/30/188 STATUS: LUIS AKBAR DR: Lydia Larios MD [...] 1419 END OF REPORT DEPARTMENT OF PATHOLOGY, [address] [place] [address] Harry Contreras M.D. Director [facility] # [id number] 20 [employer]rentice Funeral Director: [id number] Apprentice Funeral Director: [id number] Procedures Date Code Description Status 11/11/2018 16583 EEG Recording Awake & Drowsy Completed 10/13/2018 41277 EKG Tracing & Interpretation Completed 07/30/2018 48277 Thoracentesis W/ Img Guidance Completed 07/30/2018 52655 With Endobronchial Ultrasound Guided Completed 07/30/2018 24520 Bronchoscopy, W/Transbronchial Needle Aspiration Biopsy Completed [facility] [employer] Description No Information Available Encounters Type Date Location Provider Dx Diagnosis Office Visit 11/19/2018 [place] Mar Blanco, Z85.118 Personal history 3:30p [facility] Jensen of malignant neoplasm of bronchus and lung F01.50 Vascular dementia without behavioral disturbance I69.319 Unsp symptoms and signs w cogn fnctns fol cerebral infrc Office Visit 10/13/2018 3:00p [facility] Billy Tavares 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 neoplasm of bronchus and lung 12/22/2018 F01.50 Vascular dementia without behavioral Lou Blanco M.D. disturbance 11/19/2018 Z85.118 Personal history of other malignant Lou Blanco M.D. neoplasm of bronchus and lung 11/19/2018 F01.50 Vascular dementia without behavioral Lou Blanco M.D. 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 10/13/2018 I25.10 Atherosclerotic heart disease of [place] Billy Cuba M.D. coronary artery with 10/13/2018 I48.92 Unspecified atrial flutter Billy Cuba M.D. 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 at [facility]12/22/2018 - Lou Blanco M.D.Z85.118 Personal history of other malignant neoplasm of bronchus and lungF01.50 Vascular dementia without behavioral disturbanceFollow up:6 months (30 min) Functional Status Description No Information Available Mental Status Description No Information Available Referrals Description No Information Available
--- OUTSIDE RECORDS SUMMARY | 2018-12-24 14:25 | XMS REPORT | Continuity of Care Document ---
:1945 External Reference #:[id number] Author Name Yoselyn Powers Care Team Providers Name Role Phone Brandon Sepulveda MD - Family Care Team Information Tool Keeper [phone] Medicine Problems Active Problems Provider Date Ischemic [...] years 1 Pack Daily Smoking Status Reviewed: 11/19/18 Former Cigarette Smoker 55 years 1 Pack [...] every Unknown 1000mg Tablets day Warfarin Sodium 5 mg po Tues, Brandon Sepulveda, 5mg Thurs, Sat, Sun MD Tablets 7.5 Mon, Wed, Fri as directed Aspirin daily Unknown 81mg Vitamin B Complex [...] Brandon A., 20mg day MD Tablets Ipratropium Dennis 1 spray each Unknown 0.06% nostril as needed Solution Paxil 1 by mouth every Unknown 20mg Tablets day Vitamin E 1 by mouth every Unknown 400Unit day Capsules Vitamin D3 once daily Unknown Fish Oil once daily Unknown Immunizations Description No Information Available Vital Signs Date Vital Result Comment 11/19/2018 3:38pm Height 71 inches 5'11" Weight 196.00 lb Heart Rate 64 /min BP Systolic 124 mmHg BP Diastolic 70 mmHg BMI (Body Mass Index) 27.3 kg/m2 10/13/2018 2:46pm Height 71 inches 5'11" Weight 190.00 lb Heart Rate 79 /min BP Systolic Sitting 120 mmHg Lue reg cuff BP Diastolic Sitting 62 mmHg Lue reg cuff BP Systolic Standing 122 mmHg Lue reg cuff BP Diastolic Standing 62 mmHg Lue reg cuff Respiratory Rate 14 /min BMI (Body Mass Index) 26.5 kg/m2 Ejection Fraction 55-60% Echo 04/12/14 Results Test Date Facility Test Result H/L Range Note CBC Auto Diff 11/04/2018 [facility] White Blood 1.9 10^3/uL Low 3.5-10.[address] [place] [address] [phone] Red Blood Count 3.11 10^6/uL Low 4.18-5.48 [...] Blood Cells % 0.4 Laboratory test 07/30/2018 [facility] Cytology SEE RESULT [address] [place] [address] [phone] Lung Cancer 07/30/2018 [facility] LNGPR Result See Comment [address] [address] [phone] LNGPR Result See Comment 5 LNGPR Interpretation See Comment 6 LNGPR Additional Information See Comment 7 LNGPR Specimen Cells LNGPR Tissue Id [id number] #3 LNGPR Released By See Comment 8 Body Fluid C&S 07/30/2018 [facility] Body Fluid Cult SEE RESULT [address] [place] [address] [phone] Lactate 07/30/2018 [facility] Lactate 147 U/L 10 Dehydrogenase,BF [address] Dehydrogenase, [place] [address] BF [phone] Fluid Source Pleural 11 Body Fluid Total 07/30/2018 [facility] Total Protein, BF 3.6 g/ dL [address] [place] [address] [phone] Fluid Source Pleural 13 Body Fluid Cell 07/30/2018 [facility] Body Fluid Pleural Fluid Count [address] [place] [address] [phone] Body Fluid Appearance Bloody Body Fluid Color Abeba Body Fluid Volume 8 mL Body Fluid WBC 2955 /mcL Normal 14 Body Fluid RBC 42773 /mcL Body Fluid Neutrophils 7 % Body Fluid Lymph 76 % Body Fluid [place] 16 % Body Fluid Eosinophil 1 % Body Fluid Other Cells 2 Body Fluid Total Cells Counted 100 Fluid Reviewed By MD (SEE NOTE) 15 Body Fluid Glucose 07/30/2018 [facility] Glucose, BF 151 mg/dL [address] [place] [address] [phone] Fluid Source PLEURAL 17 Laboratory test 07/30/2018 [facility] Body Fluid PH 8.0 [address] [place], [place] [address] [phone] Laboratory test 07/30/2018 [facility] Cytology SEE RESULT [address] [place] [address] [phone] Laboratory test 07/30/2018 [facility] Point of Care 173 mg/dL High 70-10 [address] Glucose 0 [place] [address] [phone] Laboratory test 07/14/2018 [facility] Point of Care 176 mg/dL High 70-10 [address] Glucose 0 [place] [address] [phone] 1 Consistent with Previous Results Reported on 10/22/18 2 Consistent with Previous Results Reported on 10/28/18 3 SEE RESULT BELOW Name: MORIAH CARLSON : [address]: Kirstin Bergeron MD Acct: [id number] Unit: [id number] AGE: 72 Location: OR Re07/30/18 SEX: M Status: AMARJIT SONG SPEC: [id number] WANDA: 07/30/18-[address]: Kirstin Bergeron MD REQ: [id number] RECD: 07/30/181534 STATUS: SOUT _ ORDERED: FNA-IMG GUID BX/3, CY ADEQ-ADDL P/2, LEVEL 4/3, CYTO ADEQ-1ST P/3, IMMUN IMMUNO-ADDL/2, IMMUNO-QUANT ADDENDUM Lung Panel with Rearrangement Tumor has been performed at [place], [place]. The testing reveals: Received: 04 Aug [...] REFERENCES 1. Mol Diagn. 2013 Sep;15(4):415-53 (PMID 82280607) 2. Oncologist. 2016 Aug;21(6):684-91 (PMID 67723198) 3. Lancet Oncol. 2016 July;17(5):642-50 (PMID 95822246) 4. Lancet Oncol. 2016 Sep;17(7):984-93 (PMID 52490465) CONTINUED ON NEXT PAGE DEPARTMENT OF PATHOLOGY, [address] [place] [address] Harry Contreras M.D. Director [facility] # [id number] RUN DATE: 08/18/18 [facility] LAB LIVE PAGE 2 Patient: MORIAH CARLSON [id number] (Continued) ADDENDUM (Continued) 5. Cancer Discov. 2015 Oct;5(8):842-9 (PMID 62235374) 6. Cancer Discov. 2015 Oct;5(8):850-9 (PMID 00882471) 7. Valerie. Med. 2013 Jan;19(11):1469-88 (PMID 60773311) ADDITIONAL INFORMATION Microscopic examination was performed by [...] and additional information about this test, see [email or web address] (Test ID LNGPR). CLINICAL CORRELATIONS Test results [...] CONTINUED ON NEXT PAGE DEPARTMENT OF PATHOLOGY, [address] [place] [address] Harry Contreras M.D. Director [facility] # [id number] RUN DATE: 08/18/18 [facility] LAB LIVE PAGE 3 Patient: MORIAH CARLSON [id number] (Continued) ADDENDUM (Continued) results. Additional Information CLINICAL TRIALS Possible clinical trials of benefit for this patient can be found at the following sites: 1) ClinicalTrials.gov: www.clinicaltrials.gov/ct2/search/advanced 2) [facility]: www.[place]/research/clinical-trials/ 3) National Cancer [place]: www.cancer.gov/clinicaltrials/search Specimen: Cells Tissue ID: [id number] #3 Released By Denia Palmer M.D. Addendum [...] CONTINUED ON NEXT PAGE DEPARTMENT OF PATHOLOGY, [address] [place] [address] Harry Contreras M.D. Director [facility] # [id number] RUN DATE: 08/18/18 [facility] LAB LIVE PAGE 4 Patient: MORIAH CARLSON [id number] (Continued) FINAL DIAGNOSIS (Continued) Comment: The aspirate smears and formalin fixed cell block demonstrate a cohesive cytologically malignant squamous epithelial elements with out demonstrable keratinization. The following immunohistochemical stains are performed with appropriate controls. CK5/6 positive CK7 negative PDL 1 0% staining in tumor, 0% in lymphocytes, ALK negative Gene sequencing for targeted therapies is pending on air dried smears at [facility] ([facility]) and will be reported in an [...] CONTINUED ON NEXT PAGE DEPARTMENT OF PATHOLOGY, [address] [place] [address] Harry Contreras M.D. Director [facility] # [id number] RUN DATE: 08/18/18 [facility] LAB LIVE PAGE 5 Patient: MORIAH CARLSON [id number] (Continued) GROSS DESCRIPTION (Continued) GROSS DESCRIPTION #1) [...] 1552 END OF REPORT DEPARTMENT OF PATHOLOGY, [address] [place] [address] Harry Contreras M.D. Director [facility] # [id number] 4 RESULT: NO ALTERATIONS IDENTIFIED 5 Provided [...] REFERENCES 1. Mol Diagn. 2013 Sep;15(4):415-53 (PMID 56877201) 2. Oncologist. 2016 Aug;21(6):684-91 (PMID 27371272) 3. Lancet Oncol. 2016 July;17(5):642-50 (PMID 77896091) 4. Lancet Oncol. 2016 Sep;17(7):984-93 (PMID 59014428) 5. Cancer Discov. 2014;5(8):842-9 (PMID 28436727) 6. Cancer Discov. 2014;5(8):850-9 (PMID 69514939) 7. Valerie. Med. 2013 Jan;19(11):1469-52 (PMID 99079536) ADDITIONAL INFORMATION Microscopic examination was performed by [...] and additional information about this test, see [email or web address] (Test ID LNGPR). CLINICAL CORRELATIONS Test results [...] developed and its performance characteristics determined by [facility] in a manner consistent with CLIA requirements. This test has not been cleared or approved by the U.S. Food and Drug Administration. 7 CLINICAL TRIALS Possible clinical trials of benefit for this patient can be found at the following sites: 1) ClinicalTrials.gov: www.clinicaltrials.gov/ct2/search/advanced 2) [facility]: www.[facility]/research/clinical-trials/ 3) National Cancer [place]: www.cancer.gov/clinicaltrials/search 8 RESULT: Denia Palmer M.D. Test Performed by: [address] [address] 9 SEE RESULT BELOW Name: MORIAH CARLSON : [address]: Kirstin Bergeron MD Acct: [id number] Unit: [id number] AGE: 72 Location: OR Re07/30/18 SEX: M Status: DEP SDC SPEC: [id number] WANDA: 07/30/[address] [facility] [address]: Kirstin Bergeron MD REQ: [id number] RECD: 07/30/18 STATUS: DEMARCUS AKBAR DR: Brandon Sepulveda MD _ SOURCE: BODY FLUID SPDESC:PL RT LNG ORDERED: BF Javier/GS Procedure Result Reported Site Body Fluid Gram Stain Final 07/30/18- 1523 ML 4+ Nucleated Cells No Organisms Seen Preparation By Cytospin Smear Body Fluid Culture Final 08/03/18- 1004 ML No Growth Day 4 * ML - Main Lab . END OF REPORT DEPARTMENT OF PATHOLOGY, [address] [place] [address] Harry Contreras M.D. Director [facility] # [id number] 10 REFERENCE VALUE Not Applicable 11 Test Performed by: [facility] - [address] [address] 12 REFERENCE VALUE Not Applicable ADDITIONAL INFORMATION This test has been modified from the granite countertop installer's instructions. Its performance characteristics were determined by [facility] in a manner consistent with CLIA requirements. This test has not been cleared or approved by the U.S. Food and Drug Administration. 13 Test Performed by: [address] [address] 14 -- REFERENCE VALUE -- Synovial: <150/mcL Peritoneal: <500/mcL Pleural: <500/mcL Pericardial: <500/mcL 15 Blood, predominantly chronic inflammatory elements with macrophages and scattered reactive mesothelial elements. Minimal polymorphonuclear cells seen. Few mildly atypical cellular clusters favor reactive. Defer to cytologic examination Reviewed by Dr. Contreras 16 REFERENCE VALUE Not Applicable 17 Test Performed by: [facility] - [facility] [address] [place] [address] 18 Please note The date recorded on the requisition indicates the sample (s) received were greater than 72 hours old upon arrival in our laboratory. Ref Range Not Established Disclaimer: This test was developed and its performance characteristics determined by [employer]. It has not been cleared or approved by the Food and Drug Administration. Test Performed: [employer] [id number] Dir: Arabella Waite MD 19 SEE RESULT BELOW Name: MORIAH CARLSON : [address]: Kirstin Bergeron MD Acct: [id number] Unit: [id number] AGE: 72 Location: OR Re07/30/18 SEX: M Status: AMARJIT FELDMAN SPEC: [id number] WANDA: 07/30/181405 [facility] DR: Kirstin Bergeron MD REQ: [id number] RECD: 07/30/18 STATUS: LUIS AKBAR DR: Lydia [...] 1419 END OF REPORT DEPARTMENT OF PATHOLOGY, [address] [place] [address] Harry Contreras M.D. Director [facility] # [id number] 20 Ug Designer: [id number] 21 Ug Designer: [id number] Procedures Date Code Description Status 11/11/2018 46001 EEG Recording Awake & Drowsy Completed 10/13/2018 45950 EKG Tracing & Interpretation Completed 07/30/2018 12262 Thoracentesis W/ Img Guidance Completed 07/30/2018 40935 With Endobronchial Ultrasound Guided Completed 07/30/2018 07550 Bronchoscopy, W/Transbronchial Needle Aspiration Biopsy Completed [facility] [employer] Description No Information Available Encounters Type Date Location Provider Dx Diagnosis Office Visit 10/13/2018 [facility] Billy Tavares 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 I48.92 Unspecified atrial flutter Office Visit 08/12/2018 11:30a Pulmonology And Kirstin C34.90 [facility] neoplasm of unsp Exercise Physiologist Certified part of unsp bronchus or lung Office Visit 07/28/2018 9:30a Pulmonology And Kirstin J91.0 [facility] pleural effusion Exercise Physiologist Certified R91.8 Other nonspecific abnormal finding of lung field C34.90 Malignant neoplasm of unsp part of unsp bronchus or lung J98.4 Other disorders of lung Assessments Date Code Description Provider 11/19/2018 Z85.118 Personal history of other malignant Lou Blanco M.D. neoplasm of bronchus and lung 11/19/2018 F01.50 Vascular dementia without behavioral Lou Blanco M.D. 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 coronary artery with 10/13/2018 [...] Kirstin Bergeron MD Plan of Treatment Future Appointment(s):12/22/2018 2:00 pm 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
--- OUTSIDE RECORDS SUMMARY | 2018-12-24 14:25 | XMS REPORT | Continuity of Care Document ---
:1945 External Reference #:[id number] Author Name Lou Blanco M.D. (transmitted by agent of provider Rhianna Branch) Address [address] [place] [address] Care Team Providers Name Role Phone Brandon Sepulveda MD - Family Care Team Information Life Insurance Underwriter [phone] Medicine Problems Active Problems Provider Date Ischemic [...] Tablets day Warfarin Sodium 5 mg po Tutano, Brandon Sepulveda., 5mg Jaycob Rapp Sun MD Tablets 7.5 Mon, Wed, Fri [...] 24HR Rosuvastatin Calcium 1 by mouth every Garrett, Brandon A., 20mg day MD Tablets Ipratropium [place] 1 spray each Unknown 0.06% nostril as [...] H/L Range Note CBC Auto Diff 11/04/2018 [facility] White Blood 1.9 10^3/uL Low 3.5-10.[address] [place] [address] [phone] Red Blood Count 3.11 10^6/uL Low 4.18-5.48 [...] Blood Cells % 0.4 Laboratory test 07/30/2018 [facility] Cytology SEE RESULT [address] [place] [address] [phone] Lung Cancer 07/30/2018 [facility] LNGPR Result See Comment [address] [place] [address] [phone] LNGPR Result See Comment 5 LNGPR Interpretation See Comment 6 LNGPR Additional Information See Comment 7 LNGPR Specimen Cells LNGPR Tissue Id [id number] #3 LNGPR Released By See Comment 8 Body Fluid C&S 07/30/2018 [facility] Body Fluid Cult SEE RESULT [address] Gram Stain BELOW [place], [place] [id number] [phone] Lactate 07/30/2018 [facility] Lactate 147 U/L 10 Dehydrogenase,BF [address] Dehydrogenase, [place] [address] BF [phone] Fluid Source Pleural 11 Body Fluid Total 07/30/2018 [facility] Total Protein, BF 3.6 g/ dL [address] [place] [address] [phone] Fluid Source Pleural 13 Body Fluid Cell 07/30/2018 [facility] Body Fluid Pleural Fluid Count [address] [place] [address] [phone] Body Fluid Appearance Bloody Body Fluid Color [place] Body Fluid Volume 8 mL Body Fluid WBC 2955 /mcL Normal 14 Body Fluid RBC 61995 /mcL Body Fluid Neutrophils 7 % Body Fluid Lymph 76 % Body Fluid Nye 16 % Body Fluid Eosinophil 1 % Body Fluid Other Cells 2 Body Fluid Total Cells Counted 100 Fluid Reviewed By MD (SEE NOTE) 15 Body Fluid Glucose 07/30/2018 [facility] Glucose, BF 151 mg/dL [address] [place] [address] [phone] Fluid Source PLEURAL 17 Laboratory test 07/30/2018 [facility] Body Fluid PH 8.0 [address] [place] [address] [phone] Laboratory test 07/30/2018 [facility] Cytology SEE RESULT [address] [place] [address] [phone] Laboratory test 07/30/2018 [facility] Point of Care 173 mg/dL High 70-10 [address] Glucose 0 [place] [address] [phone] Laboratory test 07/14/2018 [facility] Point of Care 176 mg/dL High 70-10 [address] Glucose 0 [place] [address] [phone] 1 Consistent with Previous Results Reported on 10/22/18 2 Consistent with Previous Results Reported on 10/28/18 3 SEE RESULT BELOW Name: MORIAH CARLSON : [address]: Kirstin Bergeron MD Acct: [id number] Unit: [id number] AGE: 72 Location: OR Re07/30/18 SEX: M Status: DEP [facility] SPEC: [id number] WANDA: 07/30/18-1425 [facility] DR: Kirstin Bergeron MD REQ: [id number] RECD: 07/30/18 STATUS: SOUT _ ORDERED: FNA-IMG GUID BX/3, CY ADEQ-ADDL P/2, LEVEL 4/3, CYTO ADEQ-1ST P/3, IMMUN IMMUNO-ADDL/2, IMMUNO-QUANT ADDENDUM Lung Panel with Rearrangement Tumor has been performed at [place], [place]. The testing reveals: Received: 04 Aug [...] REFERENCES 1. Mol Diagn. 2013 Sep;15(4):415-53 (PMID 69540808) 2. Oncologist. 2016 Aug;21(6):684-91 (PMID 84935341) 3. Lancet Oncol. 2016 July;17(5):642-50 (PMID 99107050) 4. Lancet Oncol. 2016 Sep;17(7):984-93 (PMID 85948963) CONTINUED ON NEXT PAGE DEPARTMENT OF PATHOLOGY, [address] [place] [address] Harry Contreras M.D. Director [facility] # [id number] RUN DATE: 08/18/18 [facility] LAB LIVE PAGE 2 Patient: MORIAH CARLSON [id number] (Continued) ADDENDUM (Continued) 5. Cancer Discov. 2015 Oct;5(8):842-9 (PMID 51938968) 6. Cancer Discov. 2015 Oct;5(8):850-9 (PMID 35507622) 7. Valerie. Med. 2013 Jan;19(11):1469-72 (PMID 88854077) ADDITIONAL INFORMATION Microscopic examination was performed by [...] and additional information about this test, see [email or web address] (Test ID LNGPR). CLINICAL CORRELATIONS Test results [...] CONTINUED ON NEXT PAGE DEPARTMENT OF PATHOLOGY, [address] [place] [address] Harry Contreras M.D. Director [facility] # [id number] RUN DATE: 08/18/18 [facility] LAB LIVE PAGE 3 Patient: MORIAH CARLSON [id number] (Continued) ADDENDUM (Continued) results. Additional Information CLINICAL TRIALS Possible clinical trials of benefit for this patient can be found at the following sites: 1) ClinicalTrials.gov: www.clinicaltrials.gov/ct2/search/advanced 2) [facility]: www.[place]/research/clinical-trials/ 3) National Cancer [place]: www.cancer.gov/clinicaltrials/search Specimen: Cells Tissue ID: [id number] #3 Released By Denia Palmer M.D. Addendum [...] CONTINUED ON NEXT PAGE DEPARTMENT OF PATHOLOGY, [address] [place] [address] Harry Contreras M.D. 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 The following immunohistochemical stains are performed with appropriate controls. CK5/6 positive CK7 negative PDL 1 0% staining in tumor, 0% in lymphocytes, ALK negative Gene sequencing for targeted therapies is pending on air dried smears at [facility] ([facility]) and will be reported in an addendum. [...] CONTINUED ON NEXT PAGE DEPARTMENT OF PATHOLOGY, [address] [place] [address] Harry Contreras M.D. Director [facility] # [id number] RUN DATE: 08/18/18 [facility] LAB LIVE PAGE 5 Patient: MORIAH CARLSON [id number] (Continued) GROSS DESCRIPTION (Continued) GROSS DESCRIPTION #1) [...] 1552 END OF REPORT DEPARTMENT OF PATHOLOGY, [address] [place] [address] Harry Contreras M.D. Director [facility] # [id number] 4 RESULT: NO ALTERATIONS IDENTIFIED 5 Provided [...] REFERENCES 1. Mol Diagn. 2013 Sep;15(4):415-53 (PMID 46801254) 2. Oncologist. 2016 Aug;21(6):684-91 (PMID 23870806) 3. Lancet Oncol. 2016 July;17(5):642-50 (PMID 35666405) 4. Lancet Oncol. 2016 Sep;17(7):984-93 (PMID 48845695) 5. Cancer Discov. 2015 Oct;5(8):842-9 (PMID 43805218) 6. Cancer Discov. 2014;5(8):850-9 (PMID 89998393) 7. Valerie. Med. 2013 Jan;19(11):1469-09 (PMID 70806213) ADDITIONAL INFORMATION Microscopic examination was performed by [...] and additional information about this test, see [email or web address] (Test ID LNGPR). CLINICAL CORRELATIONS Test results [...] developed and its performance characteristics determined by [facility] in a manner consistent with CLIA requirements. This test has not been cleared or approved by the U.S. Food and Drug Administration. 7 CLINICAL TRIALS Possible clinical trials of benefit for this patient can be found at the following sites: 1) ClinicalTrials.gov: www.clinicaltrials.gov/ct2/search/advanced 2) [facility]: www.[facility]/research/clinical-trials/ 3) National Cancer [place]: www.cancer.gov/clinicaltrials/search 8 RESULT: Denia Palmer M.D. Test Performed by: [address] [address] 9 SEE RESULT BELOW Name: MORIAH CARLSON : [address]: Kirstin Bergeron MD Acct: [id number] Unit: [id number] AGE: 72 Location: OR Re07/30/18 SEX: M Status: AMARJIT FELDMANC SPEC: [id number] WANDA: 07/30/18 [facility] DR: Kirstin Bergeron MD REQ: [id number] RECD: 07/30/18 STATUS: DEMARCUS AKBAR DR: Brandon Sepulveda MD _ SOURCE: BODY FLUID SPDESC:PL RT LNG ORDERED: MUSA Herrera/GS Procedure Result Reported Site Body Fluid Gram Stain Final 07/30/18- 1523 ML 4+ Nucleated Cells No Organisms Seen Preparation By Cytospin Smear Body Fluid Culture Final 08/03/18- 1004 ML No Growth Day 4 * ML - [facility] . END OF REPORT DEPARTMENT OF PATHOLOGY, [address] [place] [address] Harry Contreras M.D. Director [facility] # [id number] 10 REFERENCE VALUE Not Applicable 11 Test Performed by: [facility] - [address] [address] 12 REFERENCE VALUE Not Applicable ADDITIONAL INFORMATION This test has been modified from the director clinical pharmacology's instructions. Its performance characteristics were determined by [facility] in a manner consistent with CLIA requirements. This test has not been cleared or approved by the U.S. Food and Drug Administration. 13 Test Performed by: [address] [address] 14 -- REFERENCE VALUE -- Synovial: <150/mcL Peritoneal: <500/mcL Pleural: <500/mcL Pericardial: <500/mcL 15 Blood, predominantly chronic inflammatory elements with macrophages and scattered reactive mesothelial elements. Minimal polymorphonuclear cells seen. Few mildly atypical cellular clusters favor reactive. Defer to cytologic examination Reviewed by Dr. Contreras 16 REFERENCE VALUE Not Applicable 17 Test Performed by: [facility] - [place] [id number] Please note The date recorded on the requisition indicates the sample (s) received were greater than 72 hours old upon arrival in our laboratory. Ref Range Not Established Disclaimer: This test was developed and its performance characteristics determined by [facility]. It has not been cleared or approved by the Food and Drug Administration. Test Performed: [facility] [address] [id number] Dir: Arabella Waite MD 19 SEE RESULT BELOW Name: MORIAH CARLSON : [address]: Kirstin Bergeron MD Acct: [id number] Unit: [id number] AGE: 72 Location: OR Re07/30/18 SEX: M Status: AMARJIT FELDMAN SPEC: [id number] WANDA: 07/30/181405 [facility] DR: Kirstin Bergeron MD REQ: [id number] RECD: 07/30/18 STATUS: LUIS AKBAR DR: Lydia [...] 1419 END OF REPORT DEPARTMENT OF PATHOLOGY, [address] [place] [address] Harry Contreras M.D. Director [facility] # [id number] [address] Stainer: [id number] [address] Stainer: [id number] Procedures Date Code Description Status 10/13/2018 08333 EKG Tracing & Interpretation Completed 07/30/2018 44660 Thoracentesis W/ Img Guidance Completed 07/30/2018 61793 With Endobronchial Ultrasound Guided Completed 07/30/2018 03117 Bronchoscopy, W/Transbronchial Needle Aspiration Biopsy Completed [facility] Description No Information Available Encounters Type Date Location Provider Dx Diagnosis Office Visit 11/19/2018 [facility] Lou Blanco, Z85.118 Personal history 3:30p [facility] Jensen of malignant neoplasm of bronchus and lung F01.50 Vascular dementia without behavioral disturbance Office Visit 10/13/2018 3:00p [facility] Billy Tavares 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 neoplasm of bronchus and lung 11/19/2018 F01.50 Vascular dementia without behavioral Lou Blanco M.D. disturbance 10/13/2018 I25.10 Atherosclerotic heart disease of [place] Billy Cuba M.D. coronary artery with 10/13/2018 [...] lung Kirstin Bergeron MD Plan of Treatment 11/19/2018 - Lou Blanco M.D.Z85.118 Personal history of other malignant neoplasm of bronchus and lungNew Xrays:MRI Brain W/Wo, Ordered: 11/19/18F01.50 Vascular dementia without behavioral disturbanceNew Xrays:MRI Brain W/Wo, Ordered: 11/19/18Follow up:after MRI (30 min - cognitive testing) Functional Status Description No Information Available Mental Status Description No Information Available Referrals Description No Information Available
[2018-12-24 14:43] LABS: TSH (Thyroid Stimulating Horm) 0.79 mcIU/mL (0.34-5.60)
--- NOTE | 2018-12-24 14:48 | ED ---
HPI Chest Pain - HPI Summary HPI Summary: 73 year old male reports to the ED with a chief complaint of chest pain starting around 0100 last night. The pain is described as non-radiating pressure in the middle of his chest that is of moderate severity. Per , patient had chemotherapy in September for lung cancer. He has a history of stroke, aFib, and NC. Per , patient has been feeling weak lately and recently fell and broke 2 ribs. Hx smoking 55 years. He takes Warfarin 7.5 mg per day. 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 - Onset/Duration: Started Hours Ago, Still Present, Worse Since - 0100 Timing: Constant, Lasting Hours Initial Severity: Moderate Current Severity: Moderate Pain Intensity: 6 Pain Scale Used: 0-10 Numeric Chest Pain Location: Mid Sternal Chest Pain Radiates: No Character: Pressure/Squeezing Aggravating Factor(s): Nothing Alleviating Factor(s): Nothing Associated Signs and Symptoms: Positive: Chest Pain - Allergy/Home Medications Allergies/Adverse Reactions: Allergies Allergy/AdvReac Type Severity Reaction Status Date / Time No Known Allergies Allergy Verified 12/24/18 14:14 Home Medications: Home Medications PARoxetine HCL TAB* [Paxil TAB*] 20 mg PO DAILY 12/24/18 [History Confirmed 02/01] Warfarin TAB(*) [Coumadin TAB(*)] 7.5 mg PO DAILY 12/24/18 [History Confirmed ] PMH/Surg Hx/FS Hx/Imm Hx Endocrine/Hematology History: Reports: Hx Diabetes - TYPE II- ORAL MEDICATION FOR Cardiovascular History: Reports: Hx Atrial Fibrillation, Hx Hypercholesterolemia , Hx Hypertension - WELL CONTROLLED WITH MEDICATION, Hx Myocardial Infarction - "silent NC", Hx Peripheral Vascular Disease - STENTS INSERTED INTO BILATERAL LEGS, Other Cardiovascular Problems/Disorders - HIGH CHOLESTEROL WELL CONTROLED WITH MEDICATION Denies: Hx Pacemaker/ICD, Hx Valvular Heart Disease Respiratory History: Denies: Hx Asthma, Hx Sleep Apnea GI History: Reports: Hx Gastroesophageal Reflux Disease - ON MEDICATION FOR Denies: Hx Ulcer, Other GI Disorders History: Reports: Hx Kidney Stones - x1, passed Denies: Hx Dialysis, Hx Renal Disease, Other Problems/Disorders Musculoskeletal History: Denies: Hx Tendonitis, Other Musculoskeletal History Sensory History: Reports: Hx Cataracts - starting, Hx Contacts or Glasses, Hx Hearing Problem Denies: Hx Hearing Aid Opthamlomology History: Reports: Hx Cataracts - starting, Hx Contacts or Glasses Neurological History: Reports: Hx CVA, Hx Transient Ischemic Attacks (TIA) Denies: Other Neuro Impairments/Disorders Psychiatric History: Denies: Hx Panic Disorder - Cancer History Cancer Type, Location and Year: SKIN CA -EAR. Lung CA - Surgical History Surgery Procedure, Year, and Place: APR 25, 2014- REVEAL LINQ MONITOR- LQ11, * 1.5 T ONLY* PER PT'S EVERYTHING AUTOMATICALLY DOWNLADS EVERY NIGHT AT MIDNIGHT. 2000- FEMORAL STENT. FEB 2014- HERNIA REPAIR. BLADDER SX. SKIN CA REMOVAL. CARDIAC CATH. Right mid lobectomy June 2017. BIOPSY OF LUNG NODES Hx Anesthesia Reactions: No Infectious Disease History: No Infectious Disease History: Denies: Traveled Outside the [place] in Last 30 Days - Family History Known Family History: Positive: Other - gallbladder issues Family History: Positive for mother who at the age of 72 of intracerebral hemorrhage. Grandfather had brain aneurysm at the age of 52. Father had history of heart disease and secondary to it at the age of 73. - Social History Alcohol Use: Daily Alcohol Amount: 1 - 2 beers a day Hx Substance Use: No Substance Use Type: Reports: None Hx Tobacco Use: Yes Smoking Status (MU): Former Smoker Amount Used/How Often: 1 PPD X 40 YEARS + Review of Systems Negative: Fever Positive: Chest Pain All Other Systems Reviewed And Are Negative: Yes Physical Exam - Summary Physical Exam Summary: VITAL SIGNS: Reviewed. GENERAL: Patient is a well-developed and nourished male who is lying comfortable in the stretcher. Patient is not in any acute respiratory distress. HEAD AND FACE: No signs of trauma. No ecchymosis, hematomas or skull depressions. No sinus tenderness. EYES: PERRLA, EOMI x 2, No injected conjunctiva, no nystagmus. EARS: Hearing grossly intact. Ear canals and tympanic membranes are within normal limits. MOUTH: Oropharynx within normal limits. NECK: Supple, trachea is midline, no adenopathy, no JVD, no carotid bruit, no c- spine tenderness, neck with full ROM. CHEST: Symmetric, no tenderness at palpation. LUNGS: Decreased breath sounds. No wheezing or crackles. CVS: Irregular rate and rhythm, S1 and S2 present, no murmurs or gallops appreciated. ABDOMEN: Soft, non-tender. No signs of distention. No rebound, no guarding, and no masses palpated. Bowel sounds are normal. EXTREMITIES: FROM in all major joints, no edema, no cyanosis or clubbing. NEURO: Alert and oriented x 2. No acute neurological deficits. Speech is normal and follows commands. SKIN: Dry and warm. Triage Information Reviewed: Yes Vital Signs On Initial Exam: Initial Vitals Temp Pulse Resp BP Pulse Ox 99.1 F 127 20 125/76 95 12/24/18 13:25 12/24/18 13:25 12/24/18 13:25 12/24/18 13:25 12/24/18 13:25 Vital Signs Reviewed: Yes Procedures - Sedation Patient Received Moderate/Deep Sedation with Procedure: No Diagnostics - Vital Signs Vital Signs Temp Pulse Resp BP Pulse Ox 12/24/18 14:15 96 12/24/18 14:00 119 17 93 12/24/18 13:52 129 117/91 94 12/24/18 13:51 129 93 12/24/18 13:25 99.1 F 127 20 125/76 95 - Laboratory Lab Results: Lab Results 12/24/18 12/24/18 12/24/18 Range/Units 13:33 13:33 13:33 WBC 8.4 (3.5-10.8) 10^3/uL RBC 3.53 L (4.18-5.48) 10^6 /uL Hgb 11.6 L (14.0-18.0) g/dL Hct 34 L (42-52) % MCV 97 H (80-94) fL MCH 33 H (27-31) pg MCHC 34 (31-36) g/dL RDW 18 H (10-15) % Plt Count 197 (150-450) 10^3/uL MPV 6.1 L (7.4-10.4) fL Neut % (Auto) 85.3 % Lymph % (Auto) 2.2 % Reagan % (Auto) 11.4 % Eos % (Auto) 0.7 % Baso % (Auto) 0.4 % Absolute Neuts (auto) 7.1 (1.5-7.7) 10^3/ul Absolute Lymphs (auto) 0.2 L (1.0-4.8) 10^3/ul Absolute Monos (auto) 1.0 H (0-0.8) 10^3/ul Absolute Eos (auto) 0.1 (0-0.6) 10^3/ul Absolute Basos (auto) 0.0 (0-0.2) 10^3/ul Absolute Nucleated RBC 0.0 10^3/ul Nucleated RBC % 0.0 INR (Anticoag Therapy) 3.85 H (0.82-1.09) APTT 70.8 H (26.0-38.0) seconds Sodium 132 L (135-145) mmol/L Potassium 5.1 H (3.5-5.0) mmol/L Chloride 98 L (101-111) mmol/L Carbon Dioxide 27 (22-32) mmol/L Anion Gap 7 (2-11) mmol/L BUN 13 (6-24) mg/dL Creatinine 0.78 (0.67-1.17) mg/dL Est GFR ( Amer) 117.4 (>60) Est GFR (Non-Af Amer) 97.0 (>60) BUN/Creatinine Ratio 16.7 (8-20) Glucose 170 H (70-100) mg/dL Lactic Acid (0.5-2.0) mmol/L Calcium 9.5 (8.6-10.3) mg/dL Magnesium 2.0 (1.9-2.7) mg/dL Total Bilirubin 0.50 (0.2-1.0) mg/dL AST 14 (13-39) U/L ALT 14 (7-52) U/L Alkaline Phosphatase 72 (34-104) U/L Total Creatine Kinase 42 (10-223) U/L CK-MB (CK-2) 1.6 (0.6-6.3) ng/mL Troponin I 0.01 (<0.04) ng/mL B-Natriuretic Peptide (<=100) pg/mL Total Protein 6.7 (6.4-8.9) g/dL Albumin 4.0 (3.2-5.2) g/dL Globulin 2.7 (2-4) g/dL Albumin/Globulin Ratio 1.5 (1-3) TSH Pending 12/24/18 12/24/18 Range/Units 13:33 13:33 WBC (3.5-10.8) 10^3/uL RBC (4.18-5.48) 10^6 /uL Hgb (14.0-18.0) g/dL Hct (42-52) % MCV (80-94) fL MCH (27-31) pg MCHC (31-36) g/dL RDW (10-15) % Plt Count (150-450) 10^3/uL MPV (7.4-10.4) fL Neut % (Auto) % Lymph % (Auto) % Reagan % (Auto) % Eos % (Auto) % Baso % (Auto) % Absolute Neuts (auto) (1.5-7.7) 10^3/ul Absolute Lymphs (auto) (1.0-4.8) 10^3/ul Absolute Monos (auto) (0-0.8) 10^3/ul Absolute Eos (auto) (0-0.6) 10^3/ul Absolute Basos (auto) (0-0.2) 10^3/ul Absolute Nucleated RBC 10^3/ul Nucleated RBC % INR (Anticoag Therapy) (0.82-1.09) APTT (26.0-38.0) seconds Sodium (135-145) mmol/L Potassium (3.5-5.0) mmol/L Chloride (101-111) mmol/L Carbon Dioxide (22-32) mmol/L Anion Gap (2-11) mmol/L BUN (6-24) mg/dL Creatinine (0.67-1.17) mg/dL Est GFR ( Amer) (>60) Est GFR (Non-Af Amer) (>60) BUN/Creatinine Ratio (8-20) Glucose (70-100) mg/dL Lactic Acid 1.5 (0.5-2.0) mmol/L Calcium (8.6-10.3) mg/dL Magnesium (1.9-2.7) mg/dL Total Bilirubin (0.2-1.0) mg/dL AST (13-39) U/L ALT (7-52) U/L Alkaline Phosphatase (34-104) U/L Total Creatine Kinase (10-223) U/L CK-MB (CK-2) (0.6-6.3) ng/mL Troponin I (<0.04) ng/mL B-Natriuretic Peptide 313 H (<=100) pg/mL Total Protein (6.4-8.9) g/dL Albumin (3.2-5.2) g/dL Globulin (2-4) g/dL Albumin/Globulin Ratio (1-3) TSH Result Diagrams: 12/24/18 13:33 12/24/18 13:33 Lab Statement: Any lab studies that have been ordered have been reviewed, and results considered in the medical decision making process. - Radiology CXR Radiology Interpretation Completed By: Radiologist Summary of Radiographic Findings: CXR shows: 1. Similar moderate right pleural effusion with right basilar airspace opacification that. is favored to be related to passive atelectasis. Infiltrate could have have a similar. appearance. 2. The known right perihilar mass and pulmonary nodularity is better characterized by comparison chest CT. 3. Magnified cardiac silhouette. An ED physician has reviewed this report. - CT Chest CT CT Interpretation Completed By: Radiologist Summary of CT Findings: CT Chest shows right perihilar mass similar to that identified on October 28, 2018 with right hilar adenopathy. Right pleural effusion with new airspace disease in the right upper lobe and right lower lobe may represent postobstructive pneumonia. An ED physician has reviewed this report. - EKG 1323 Cardiac Rate: Tachycardia - 124 bpm EKG Rhythm: Sinus Tachycardia EKG Comparison: No Significant Change - EKG at 1323 shows sinus tachycardia at 124 bpm. No change from 10/28/13. Chest Pain Course/Dx - Course Assessment/Plan: Patient is a 73-year-old male with a chief complaint of chest pain. Blood work without any significant abnormality except for a slight normocytic normochromic anemia, INR is 2.85, PTT 7.8, sodium 132, potassium 5.1 , chloride 98, glucose 170 and BNP 313. EKG shows atrial fibrillation with RVR at 117 bpm. Chest x-ray impression: 1. Similar moderate right pleural effusion with right basilar airspace opacification that is favored to be related to passive atelectasis. Infiltrate could have have a similar appearance. 2. The known right perihilar mass and pulmonary nodularity is better characterized by comparison chest CT. 3. Magnified cardiac silhouette. Because of the patients comorbidities I discussed my physical exam and findings with Dr. Lawson from the hospitalist services was accepted the patient for admission. The patient reports taking his medications this morning with aspirin and warfarin. Patient is hemodynamically stable alert and oriented 3. Addendum: After the patient was admitted to the hospitalist, the patients refused admission. The patient also does want to stay in the hospital. Therefore the second troponin is negative and the sign AGAINST MEDICAL ADVICE. I extensively discussed with the patient the benefits and risks of leaving AMA. I also discussed the alternatives to leaving AMA, however, the patient still insists on leaving the hospital AMA. The patient is clinically sober, free from distracting injury, appears to have intact insight and judgment and reason and in my opinion has the capacity to make decisions. Patient has full capacity and is cognitively intact. The patient presents with chest pain and palpitations, I have explained that I am concerned with these symptoms and may represent arrhythmia and . The patient verbalizes understanding of my concerns. I have also explained the results of the labs even though they are abnormal. The primary nurse and the charge nurse also strongly recommended that the patient should not leave AMA. Patient understands the risks of leaving AMA, which includes but is not restricted to . Patient signed the AMA form. Patient was also advised to return to ED if he changes his mind or if the symptoms worsen or other symptoms appear. Patient understands and agrees. Again, I discussed all the findings and test results with the patient. Patient was instructed to return to the emergency room immediately if any of the symptoms return or worsen. Plan of care was discussed with the patient and understands and agrees. All questions were answered at patient satisfaction. There were no further complaints or concerns. Patient signed AMA and he was discharged AMA. - Chest Pain Differential Diagnosis/HQI/PQRI: Acute NC, ACS, Angina, CHF, Chest Wall, GI Disease, Lower Respiratory Infection - Diagnoses Provider Diagnoses: Chest pain, Atrial fibrillation with RVR Discharge ED - Sign-Out/Discharge Documenting (check all that apply): Patient Departure - ama - Discharge Plan Condition: Stable Disposition: AGAINST MEDICAL ADVICE Patient Education Materials: A-fib (Atrial Fibrillation) (ED) Referrals: Brandon Sepulveda MD [Primary Care Provider] - Additional Instructions: Follow up with your primary care provider in 2-3 days. Return to the Emergency Department if you notice new or worsening symptoms. - Billing Disposition and Condition Condition: STABLE Disposition: Against Medical Advice - Attestation Statements Document Initiated by Mars: Yes Documenting Scribe: Robert Hobbs Provider For Whom Mars is Documenting (Include Credential): Francis Darden MD. Scribe Attestation: Robert Staley, scribed for Francis Darden MD. on 12/25/18 at 2123. Scribe Documentation Reviewed: Yes Provider Attestation: The documentation as recorded by the alirioibeRobert accurately reflects the service I personally performed and the decisions made by , Francis Darden MD. Status of Scribe Document: Viewed
[2018-12-24] MEDS ORDERED: Diltiazem IV push/loading dose 5 MG/ML 5 ML vial (25 mg) IV SLOW PU ONE (16:27)
[2018-12-24] MEDS ORDERED: Diltiazem CD CAP* 240 MG PO ONE (18:04)
[2018-12-24 18:26] VITALS: BP 94/67
== END 2018-12-24 18:25 | disposition left against medical advice (07) ==
LOC: ED 13:21
DX: R07.9 Chest pain, unspecified (principal); I48.20 Chronic atrial fibrillation, unspecified; J90 Pleural effusion, not elsewhere classified; E11.9 Type 2 diabetes mellitus without complications; I10 Essential (primary) hypertension; K21.9 Gastro-esophageal reflux disease without esophagitis; E78.00 Pure hypercholesterolemia, unspecified; I25.2 Old myocardial infarction; Z86.73 Personal history of transient ischemic attack (TIA), and cerebral infarction without residual deficits; Z85.118 Personal history of other malignant neoplasm of bronchus and lung; Z85.828 Personal history of other malignant neoplasm of skin; Z87.891 Personal history of nicotine dependence; Z79.01 Long term (current) use of anticoagulants; Z79.82 Long term (current) use of aspirin; Z79.84 Long term (current) use of oral hypoglycemic drugs; Z79.899 Other long term (current) drug therapy
CPT/HCPCS: 36415; 71045; 71250; 80053; 82550; 82553; 83605; 83735; 83880; 84443; 84484; 85025; 85610; 85730; 93005; 96361; 96374; 99284; A9270-GY